=== PATIENT | male | born 1965 | race Caucasian/White ===

== ENCOUNTER 2017-01-06 20:13 | Inpatient (IN) | payer SELFPAY ==
[2017-01-06 20:29] VITALS: BP 117/73; PULSE 80; RESP 16; TEMP 97.9
--- NOTE | 2017-01-06 20:35 | PD ---
HPI Chief Complaint: Alcohol/Drug Intoxication Time Seen by Provider: 20:29 Travel History International Travel<30 days: No Contact w/Intl Traveler<30days: No Traveled to known affect area: No History of Present Illness HPI Patient comes in by EMS after having a reported witnessed fall at [facility]. Patient was reportedly outside of [facility] drinking alcohol when he was seen falling backwards hitting his head. Patient appears heavily intoxicated and a poor historian at this time thus limiting H&P. [facility] Past Medical History Medical History: Unable to Obtain Social History Alcohol Use: Yes Tobacco Use: Yes Allergies-Medications (Allergen,Severity, Reaction): Coded Allergies: Unable to Assess (Verified Allergy, Unknown, 01/06/17) Reported Meds & Prescriptions Reported Meds & Active Scripts Active Active Prescriptions or Reported Medications Unobtainable Review of Systems ROS Limitations: Intoxication Except as stated in HPI: all other systems reviewed are Neg Physical Exam Exam Limitations: Intoxication Narrative GENERAL: Well-developed, overly nourished, in no acute distress, and non-ill appearing. Alcohol noted on breath. SKIN: Focused skin assessment warm and dry. HEAD: Atraumatic. Normocephalic. EYES: Pupils equal and round. EOMI. No scleral icterus. No injection or drainage. ENT: No nasal bleeding or discharge. Mucous membranes pink and moist. NECK: Trachea midline. C-collar in place. CARDIOVASCULAR: Regular rate and rhythm. No murmur appreciated. RESPIRATORY: No accessory muscle use. No respiratory distress. Clear to auscultation. Breath sounds equal bilaterally. GASTROINTESTINAL: Abdomen soft, non-tender, nondistended, and no guarding. Hepatic and splenic margins not palpable. Normal bowel sounds 4. No pulsatile mass. MUSCULOSKELETAL: No obvious deformities. No clubbing. No cyanosis. No edema. Full range of motion. NEUROLOGICAL: Awake and alert. No obvious cranial nerve deficits. Motor grossly within normal limits. Slurred speech. Data Data Last Documented VS Vital Signs Date Time Temp Pulse Resp B/P (MAP) Pulse Ox O2 Delivery O2 Flow Rate FiO2 01/06/17 21:35 16 96 Room Air 01/06/17 20:29 97.9 80 117/73 (88) Orders Orders Ct Brain W/O Iv Contrast(Rout) (01/06/17 ) Ct Cerv Spine W/O Contrast (01/06/17 ) Basic Metabolic Panel (Bmp) (01/06/17 21:10) Complete Blood Count With Diff (01/06/17 21:10) Act Partial Throm Time (Ptt) (01/06/17 21:10) Iv Access Insert/Monitor (01/06/17 21:10) Ecg Monitoring (01/06/17 21:10) Oximetry (01/06/17 21:10) Sodium Chloride 0.9% Flush (Ns Flush) (01/06/17 21:15) Prothrombin Time / Inr (Pt) (01/06/17 21:10) Alcohol (Ethanol) (01/06/17 21:10) Admit To Inpatient (01/06/17 ) Code Status (01/06/17 21:40) Vital Signs (Adult) CHESTER.Q1H (01/06/17 21:40) Activity Bed Rest (01/06/17 21:40) Elevate Head Of Bed (01/06/17 21:40) Bedside Glucose [place]STER.BGM (01/06/17 21:40) Diet Npo (01/07/17 Breakfast) Sodium Chloride 0.9% Flush (Ns Flush) (01/06/17 21:45) Sodium Chloride 0.9% Flush (Ns Flush) (01/07/17 09:00) Acetaminophen (Tylenol) (01/06/17 21:45) Famotidine Inj (Pepcid Inj) (01/06/17 21:45) Albuterol-Ipratropium Neb (Duoneb Neb) (01/06/17 21:45) Complete Blood Count With Diff (01/07/17 04:00) Comprehensive Metabolic Panel (01/07/17 04:00) Magnesium (Mg) (01/07/17 04:00) Phosphorus (Po4) (01/07/17 04:00) Resp Oxygen Jesus C Titrat 1-4 L (01/06/17 ) Lining Feller / Telemetry CHESTER.Q8H (01/06/17 21:40) Scd Bilateral/Knee High CHESTER.BID (01/06/17 21:40) ^ Initiate Protocol (01/06/17 21:40) Instruction (01/06/17 21:40) Misc Nursing Information (01/06/17 21:45) Chlorhexidine 2% Cloth (Chlorhexidine 2% (01/07/17 04:00) Chlorhexidine 2% Cloth (Chlorhexidine 2% (01/06/17 21:45) Mrsa Pcr Surveillance (01/06/17 21:40) Docusate Sodium-Senna (Pita-Colace) (01/07/17 09:00) Magnesium Hydroxide Liq (Milk Of Magnesi (01/06/17 21:45) Sennosides (Senokot) (01/06/17 21:45) Bisacodyl Supp (Dulcolax Supp) (01/06/17 21:45) Lactulose Liq (Lactulose Liq) (01/06/17 21:45) Inpatient Certification (01/06/17 ) Consult Neurosurgery (01/06/17 ) Admit Order (Ed Use Only) (01/06/17 21:47) Labs Laboratory Tests Test 01/06/17 21:27 White Blood Count 12.8 TH/MM3 Red Blood Count 4.29 MIL/MM3 Hemoglobin 13.3 GM/DL Hematocrit 39.1 % Mean Corpuscular Volume 91.1 FL Mean Corpuscular Hemoglobin 31.1 PG Mean Corpuscular Hemoglobin Concent 34.1 % Red Cell Distribution Width 13.0 % Platelet Count 230 TH/MM3 Mean Platelet Volume 8.2 FL Neutrophils (%) (Auto) 69.6 % Lymphocytes (%) (Auto) 21.8 % Monocytes (%) (Auto) 4.4 % Eosinophils (%) (Auto) 3.6 % Basophils (%) (Auto) 0.6 % Neutrophils # (Auto) 8.9 TH/MM3 Lymphocytes # (Auto) 2.8 TH/MM3 Monocytes # (Auto) 0.6 TH/MM3 Eosinophils # (Auto) 0.5 TH/MM3 Basophils # (Auto) 0.1 TH/MM3 CBC Comment DIFF FINAL Differential Comment Prothrombin Time 10.0 SEC Prothromb Time International Ratio 0.9 RATIO Activated Partial Thromboplast Time 26.4 SEC Blood Urea Nitrogen 11 MG/DL Creatinine 0.82 MG/DL Random Glucose 90 MG/DL Calcium Level 7.8 MG/DL Sodium Level 133 MEQ/L Potassium Level 3.7 MEQ/L Chloride Level 100 MEQ/L Carbon Dioxide Level 22.9 MEQ/L Anion Gap 10 MEQ/L Estimat Glomerular Filtration Rate 81 ML/MIN Ethyl Alcohol Level 302 MG/DL MDM Medical Decision Making Medical Screen Exam Complete: Yes Emergency Medical Condition: Yes Interpretation(s) Last Impressions Head CT 01/06/17 0000 Signed Impressions: Service Date/Time: Friday, January 06, 2017 20:45 - CONCLUSION: Closed head injury with subarachnoid hemorrhage amount the frontal region bilaterally , right anterior temporal hematoma and smaller hemorrhages in the lateral right temporal lobe and lateral right parietal cortex. Boyd Lopez MD Cervical Spine CT 01/06/17 0000 Signed Impressions: Service Date/Time: Friday, January 06, 2017 20:46 - CONCLUSION: 1. No evidence of compression deformity or spondylolisthesis. 2. Multilevel discogenic degenerative changes with prominent disc osteophyte complex indenting on the thecal sac at C5-6 and possible left sided protrusion at C3-4 Boyd Lopez MD Differential Diagnosis Closed head injury, intracranial hemorrhage, alcohol intoxication, metabolic disturbance, fracture, strain Narrative Course Patient was seen and examined. Initial neurological studies were ordered. After reviewing CT head discussed patient with Dr. Valentin, who reviewed head CT then spoke with neurosurgery and insecticide expert. Labs were ordered. Diagnosis Primary Impression: Subarachnoid hemorrhage Additional Impressions: Alcohol intoxication Qualified Codes: F10.929 - Alcohol use, unspecified with intoxication, unspecified Intracranial hemorrhage Closed head injury Qualified Codes: S09.90XA - Unspecified injury of head, initial encounter Scripts Unable to Obtain Active Prescriptions or Reported Meds Dex Morrison Jan 06, 2017 20:35
[2017-01-06] MEDS ORDERED: SODIUM CHLORIDE 0.9% FLUSH 10 ML FLUSH IV FLUSH PRN ×2 (21:15→21:45)
--- NOTE | 2017-01-06 21:15 | RADRPT ---
EXAM DATE/TIME: 01/06/2017 20:45 [facility] COMPARISON: No previous studies available for comparison. INDICATIONS : Fell and hit posterior head. RADIATION DOSE: 56.35 CTDIvol (mGy) MEDICAL HISTORY : Non-responsive. SURGICAL HISTORY : Non-responsive. ENCOUNTER: Initial ACUITY: 1 day PAIN SCALE: Non-responsive LOCATION: cranial TECHNIQUE: Multiple contiguous axial images were obtained of the head. Using automated exposure control and adj ustment of the mA and/or kV according to patient size, radiation dose was kept as low as reasonably a chievable to obtain optimal diagnostic quality images. DICOM format image data is available electro nically for review and comparison. FINDINGS: Examination is abnormal demonstrating evidence of subarachnoid hemorrhage in the anterior interhemisp heric fissure and in the inferior medial temporal region bilaterally. There is also a right temporal hematoma which appears to be intra-axial measuring 1.9 cm. Cortical contusion with mixed hyper and hypodensity in the lateral right temporal cortex superior and anterior to the petrous ridge. 5 mm pa renchymal calcification in the cortex of the right mid parietal lobe. No evidence of intraventricula r blood. No evidence of midline shift the ventricles are normal in size. Posterior fossa structures are grossly intact. Wide windows for bony detail demonstrate the calvariu m to be intact. CONCLUSION: Closed head injury with subarachnoid hemorrhage amount the frontal region bilaterally, right anterior temporal hematoma and smaller hemorrhages in the lateral right temporal lobe and lateral right parie sushma cortex. Boyd Lopez MD on January 06, 2017 at 21:10 Board Certified Radiologist. This report was verified electronically.
--- NOTE | 2017-01-06 21:25 | RADRPT ---
EXAM DATE/TIME: 01/06/2017 20:46 [facility] COMPARISON: No previous studies available for comparison. INDICATIONS : Fell and hit head. RADIATION DOSE: 38.31 CTDIvol (mGy) MEDICAL HISTORY : Non-responsive. SURGICAL HISTORY : Non-responsive. ENCOUNTER: Initial ACUITY: 1 day PAIN SCALE: Non-responsive LOCATION: neck TECHNIQUE: Volumetric scanning of the cervical spine was performed. Multiplanar reconstructions in the sagittal, coronal and oblique axial planes were performed. Using automated exposure control and adjustment o f the mA and/or kV according to patient size, radiation dose was kept as low as reasonably achievable to obtain optimal diagnostic quality images. DICOM format image data is available electronically f or review and comparison. FINDINGS: There is straightening of the cervical lordosis with preservation of vertebral body height. No fract ure seen. Mild anterior and posterior osteophytes are present from C3 through C6. The posterior nneka ments are normal and without evidence of locked or perched facets. Atlantoaxial articulation is inta ct. Prevertebral soft tissues are normal the C2-C3: No fracture seen. The neural foramen are patent. C3-C4: No fracture seen. The neural foramen are patent. C4-C5: No fracture seen. Small collection of gas left-sided superior to the displaced suggesting focal disc protrusion or gas related to left uncovertebral joint. C5-C6: Central disc/osteophyte complex causes indentation on the thecal sac. No lateral extension. C6-C7: No fracture seen. The neural foramen are patent. C7-T1: No fracture seen. The neural foramen are patent. CONCLUSION: 1. No evidence of compression deformity or spondylolisthesis. 2. Multilevel discogenic degenerative changes with prominent disc osteophyte complex indenting on the thecal sac at C5-6 and possible left sided protrusion at C3-4 Boyd Lopez MD on January 06, 2017 at 21:14 Board Certified Radiologist. This report was verified electronically.
--- NOTE | 2017-01-06 21:33 | PD ---
Data Data Last Documented VS Vital Signs Date Time Temp Pulse Resp B/P (MAP) Pulse Ox O2 Delivery O2 Flow Rate FiO2 01/06/17 21:35 16 96 Room Air 01/06/17 20:29 97.9 80 117/73 (88) Orders Orders Ct Brain W/O Iv Contrast(Rout) (01/06/17 ) Ct Cerv Spine W/O Contrast (01/06/17 ) Basic Metabolic Panel (Bmp) (01/06/17 21:10) Complete Blood Count With Diff (01/06/17 21:10) Act Partial Throm Time (Ptt) (01/06/17 21:10) Iv Access Insert/Monitor (01/06/17 21:10) Ecg Monitoring (01/06/17 21:10) Oximetry (01/06/17 21:10) Sodium Chloride 0.9% Flush (Ns Flush) (01/06/17 21:15) Prothrombin Time / Inr (Pt) (01/06/17 21:10) Alcohol (Ethanol) (01/06/17 21:10) MDM Supervised Visit with NEMESIO: Yes Narrative Course I, Dr. Valentin, have reviewed the advance practice practitioner's documentation and am in agreement, met with the patient face to face, made the diagnosis, and the medical decision making was done by me. See his note for further details. This is a middle-aged male who is apparently an alcoholic who while drinking alcohol this evening had a witnessed fall backwards. He was brought in by him once on longboard with cervical immobilization. Upon arrival the patient appears intoxicated. He is mumbling while speaking. He does not make sense. He is arousable to painful stimuli. His pupils are equal round and reactive. There are no scalp lacerations. He moves all of his extremities and which also painful stimuli. His airways patent and protected. CT of the head was promptly performed and shows closed head injury with subarachnoid hemorrhage in the frontal region bilaterally, right anterior temporal hematoma and small hemorrhages in the lateral right temporal lobe and lateral right parietal cortex. CT of the cervical spine shows degenerative changes without compression deformity or spondylolisthesis. After CT of the head was reported, labs were added and calls placed to both neurosurgeon on-call as well as tobacco stemmer for admission. 9:30 PM: Case discussed with on-call neurosurgeon Dr. Beck. He agrees with admitting to the tobacco stemmer service and will see the patient in consultation. 9:40 PM: Case discussed with tobacco stemmer Dr. Levy who will admit the patient to his service to the [facility]. Critical Care Narrative Aggregate critical care time was 35 minutes. Time to perform other separately billable procedures was not included in the critical care time. My time did not include minutes spent treating any other patients simultaneously or on activities that did not directly contribute to the patient's treatment. The services I provided to this patient were to treat and/or prevent clinically significant deterioration that could result in: , permanent disability, worsening clinical condition I provided critical care services requiring my management, as noted below: Chart data review, documentation time, medication orders and management, vital sign assessments/reviewing monitor data, ordering and reviewing lab tests, ordering and interpreting/reviewing x-rays and diagnostic studies, care of the patient and discussion of the patient with the admitting physicians. Diagnosis Primary Impression: Closed head injury Qualified Codes: S09.90XA - Unspecified injury of head, initial encounter Additional Impressions: Subarachnoid hemorrhage Intracranial hemorrhage Alcohol intoxication Qualified Codes: F10.929 - Alcohol use, unspecified with intoxication, unspecified Admitting Information Admitting Physician Requests: Admit Scripts Unable to Obtain Active Prescriptions or Reported Meds Royce Valentin MD Jan 06, 2017 21:33
[2017-01-06 21:35] VITALS: RESP 16; O2SAT 96
[2017-01-06] MEDS ORDERED: BISACODYL 10 MG SUPP RECTAL PRN (21:45)
[2017-01-06] MEDS ORDERED: MISCELLANEOUS NURSING INFORMATION XX SCH (21:45)
[2017-01-06] MEDS ORDERED: SENNOSIDES 8.6 MG TAB PO PRN (21:45)
[2017-01-06] MEDS: FAMOTIDINE 20 MG/2 ML VIAL IV PUSH SCH (21:45)
[2017-01-06] MEDS ORDERED: MAGNESIUM HYDROXIDE SUSP 30 ML CUP PO PRN (21:45)
[2017-01-06] MEDS ORDERED: CHLORHEXIDINE GLUCONATE 2 % 1 PACK (2 CLOTHS) TOP PRN (21:45)
[2017-01-06] MEDS ORDERED: ACETAMINOPHEN 325 MG TAB PO PRN ×2 (21:45→22:45)
[2017-01-06] MEDS ORDERED: RESP: ALBUTEROL 2.5 MG/IPRATROPIUM 0.5 MG NEB (PRN) INH (21:45)
[2017-01-06] MEDS ORDERED: LACTULOSE SYRUP 20 GM/30 ML CUP PO PRN (21:45)
[2017-01-06 21:50] VITALS: BP 116/69; PULSE 79; RESP 16; O2SAT 96
[2017-01-06 21:56] LABS: AUTOMATED NEUTROPHIL # 8.9 TH/MM3 (1.8-7.7); BASOPHIL # 0.1 TH/MM3 (0-0.2); BASOPHIL % 0.6 % (0.0-2.0); EOSINOPHIL # 0.5 TH/MM3 (0-0.4); EOSINOPHIL % 3.6 % (0.0-4.0); HEMATOCRIT 39.1 % (39.0-51.0); HEMO FLAGS DIFF FINAL; LYMPH % 21.8 % (9.0-44.0); LYMPHOCYTE # 2.8 TH/MM3 (1.0-4.8); MEAN CELL VOLUME 91.1 FL (80.0-100.0); MEAN CORPUSCULAR HEMOGLOBIN 31.1 PG (27.0-34.0); MEAN CORPUSCULAR HGB CONC 34.1 % (32.0-36.0); MONO % 4.4 % (0.0-8.0); NEUT % 69.6 % (16.0-70.0); PLATELET COUNT 230 TH/MM3 (150-450); RED BLOOD COUNT 4.29 MIL/MM3 (4.50-5.90); WHITE BLOOD COUNT 12.8 TH/MM3 (4.0-11.0)
[2017-01-06] MEDS: SODIUM CHLOR 0.9% 1000 ML INJ 1,000 ML IV SCH (22:00)
[2017-01-06 22:07] LABS: APTT (PATIENT) 26.4 SEC (24.3-30.1); INTERNATIONAL NORMALIZED RATIO 0.9 RATIO
[2017-01-06] MEDS ORDERED: levETIRAcetam INJ 500 MG in SODIUM CHLORIDE 0.9% INJ 100 ML IV STA (22:13)
--- NOTE | 2017-01-06 22:13 | HHI.HP ---
HPI Service Critical Care Medicine Primary Care Physician Unknown Admission Diagnosis subarachnoid hemorrhage, closed head injury Diagnosis: Travel History International Travel<30 Days: No Contact w/Intl Traveler <30 Da: No Traveled to Known Affected Are: No History of Present Illness HPI Middle-aged male brought in by EMS after witnessed fall at [facility]. Patient was reportedly drinking alcohol when he was seen falling backwards hitting his head on the pavement. He appeared to be intoxicated heavily and on arrival in the ER underwent imaging studies including a head CT which revealed subarachnoid hemorrhage. Neurosurgery was contacted by ER physician and requested admission by critical care medicine service with neurosurgery consult. Patient was accepted for admission by critical care medicine and I evaluated the patient while he was in the ER. At that time he was stuporous/ encephalopathic arousing to painful stimuli. His labs were pending at the time of my evaluation. History was obtained by reviewing records and discussion with Dr. Valentin. History [facility] Past Medical History Medical History: Unable to Obtain Social History Alcohol Use: Yes Tobacco Use: Yes Allergies-Medications Allergies-Medications Reported Meds & Prescriptions Reported Meds & Active Scripts Active Active Prescriptions or Reported Medications Unobtainable ROS Review of Systems ROS Limitations: Intoxication Except as stated in HPI: all other systems reviewed are Neg Past Family Social History Allergies: Coded Allergies: Unable to Assess (Verified Allergy, Unknown, 01/06/17) Physical Exam Vital Signs Vital Signs Date Time Temp Pulse Resp B/P (MAP) Pulse Ox O2 Delivery O2 Flow Rate FiO2 01/06/17 21:50 79 16 116/69 (85) 96 Nasal Cannula 2.00 01/06/17 21:35 16 96 Room Air 01/06/17 20:33 16 96 01/06/17 20:29 97.9 80 16 117/73 (88) Physical Exam Exam Limitations: Intoxication Narrative GENERAL: Well-developed, overly nourished, in no acute distress, and non-ill appearing. Alcohol noted on breath. SKIN: Focused skin assessment warm and dry. HEAD: Atraumatic. Normocephalic. EYES: Pupils equal and round. EOMI. No scleral icterus. No injection or drainage. ENT: No nasal bleeding or discharge. Mucous membranes pink and moist. NECK: Trachea midline. CARDIOVASCULAR: Regular rate and rhythm. No murmur appreciated. RESPIRATORY: No accessory muscle use. No respiratory distress. Clear to auscultation. Breath sounds equal bilaterally. GASTROINTESTINAL: Abdomen soft, non-tender, nondistended, and no guarding. Hepatic and splenic margins not palpable. Normal bowel sounds 4. No pulsatile mass. MUSCULOSKELETAL: No obvious deformities. No clubbing. No cyanosis. No edema. Full range of motion. NEUROLOGICAL: Encephalopathic/stuporose, arouses with painful stimuli, No obvious cranial nerve deficits. Motor grossly within normal limits. Slurred speech. Laboratory Laboratory Tests Test 01/06/17 21:27 White Blood Count 12.8 Red Blood Count 4.29 Hemoglobin 13.3 Hematocrit 39.1 Mean Corpuscular Volume 91.1 Mean Corpuscular Hemoglobin 31.1 Mean Corpuscular Hemoglobin Concent 34.1 Red Cell Distribution Width 13.0 Platelet Count 230 Mean Platelet Volume 8.2 Neutrophils (%) (Auto) 69.6 Lymphocytes (%) (Auto) 21.8 Monocytes (%) (Auto) 4.4 Eosinophils (%) (Auto) 3.6 Basophils (%) (Auto) 0.6 Neutrophils # (Auto) 8.9 Lymphocytes # (Auto) 2.8 Monocytes # (Auto) 0.6 Eosinophils # (Auto) 0.5 Basophils # (Auto) 0.1 CBC Comment DIFF FINAL Differential Comment Result Diagram: 01/06/172126 Imaging Last Impressions Head CT 01/06/17 0000 Signed Impressions: Service Date/Time: Friday, January 06, 2017 20:45 - CONCLUSION: Closed head injury with subarachnoid hemorrhage amount the frontal region bilaterally , right anterior temporal hematoma and smaller hemorrhages in the lateral right temporal lobe and lateral right parietal cortex. Boyd Lopez MD Cervical Spine CT 01/06/17 0000 Signed Impressions: Service Date/Time: Friday, January 06, 2017 20:46 - CONCLUSION: 1. No evidence of compression deformity or spondylolisthesis. 2. Multilevel discogenic degenerative changes with prominent disc osteophyte complex indenting on the thecal sac at C5-6 and possible left sided protrusion at C3-4 MD Ketan Benitez VTE Risk Assessment Ketan VTE Risk Assessment: Mod/High Risk (score >= 2) VTE Pharm Contraindication: Intracranial lesions Caprini Risk Assessment Model Point Value = 1 Point Value = 2 Point Value = 3 Point Value = 5 Age 41-60 Minor surgery BMI > 25 kg/m2 Swollen legs Varicose veins or History of unexplained or recurrent spontaneous Oral contraceptives or hormone replacement Sepsis (< 1 month) Serious lung disease, including pneumonia (< 1 month) Abnormal pulmonary function Acute myocardial infarction Congestive heart failure (< 1 month) History of inflammatory bowel disease Medical patient at bed rest Age 61-74 Arthroscopic surgery Major open surgery (> 45 min) Laparoscopic surgery (> 45 min) Malignancy Confined to bed (> 72 hours) Immobilizing plaster cast Central venous access Age >= 75 History of VTE Family history of VTE Factor V Leiden Prothrombin [id number] Lupus anticoagulant Anticardiolipin antibodies Elevated serum homocysteine Heparin-induced thrombocytopenia Other congenital or acquired thrombophilia Stroke (< 1 month) Elective arthroplasty Hip, pelvis, or leg fracture Acute spinal cord injury (< 1 month) Prophylaxis Regimen Total Risk Factor Score Risk Level Prophylaxis Regimen 0-1 Low Early ambulation 2 Moderate Order ONE of the following: *Sequential Compression Device (SCD) *Heparin 5000 units SQ BID 3-4 Higher Order ONE of the following medications: *Heparin 5000 units SQ TID *Enoxaparin/Lovenox 40 mg SQ daily (WT < 150 kg, CrCl > 30 mL/min) *Enoxaparin/Lovenox 30 mg SQ daily (WT < 150 kg, CrCl > 10-29 mL/min) *Enoxaparin/Lovenox 30 mg SQ BID (WT < 150 kg, CrCl > 30 mL/min) AND/OR *Sequential Compression Device (SCD) 5 or more Highest Order ONE of the following medications: *Heparin 5000 units SQ TID (Preferred with Epidurals) *Enoxaparin/Lovenox 40 mg SQ daily (WT < 150 kg, CrCl > 30 mL/min) *Enoxaparin/Lovenox 30 mg SQ daily (WT < 150 kg, CrCl > 10-29 mL/min) *Enoxaparin/Lovenox 30 mg SQ BID (WT < 150 kg, CrCl > 30 mL/min) AND *Sequential Compression Device (SCD) Assessment and Plan Assessment and Plan Middle aged male with: Encephalopathy TBI with traumatic subarachnoid hemorrhage, right temporal hematoma Alcohol intoxication Plan: Neuro: Follow neuro status. Neurosurgery consult requested by ER - Dr. Ebony carrington. Repeat head CT per neurosurgery. Await EtOH level/ urine drug screen. Add Keppra 500 mg IV every 12 hourly for seizure prophylaxis. Cardiovascular: IV hydration, watch for hypotension Pulmonary: Supplemental O2 as needed. Protecting airway currently. If neurologic status worsens may require endotracheal intubation for airway protection. GI/liver: Nothing by mouth for now Renal/: IV hydration, strict intake output, monitor and replete electro lites , follow BUN/creatinine. ID: No antibiotics at this time. Heme: Follow CBC and coags Endocrine: SSI for glycemic control if needed Prophylaxis: Pepcid/SCDs. No heparin or Lovenox in view of subarachnoid hemorrhage. Further recommendations per neurosurgery. Time spent on critical care excluding procedures 35 minutes Jethro Levy MD Jan 06, 2017 22:13
[2017-01-06 22:18] VITALS: BP 114/68; PULSE 73; RESP 16; O2SAT 100
[2017-01-06 22:28] LABS: BICARBONATE 22.9 MEQ/L (21.0-32.0); POTASSIUM 3.7 MEQ/L (3.5-5.1)
--- NOTE | 2017-01-06 22:42 | RADRPT ---
EXAM DATE/TIME: 01/06/2017 22:06 [facility] COMPARISON: No previous studies available for comparison. INDICATIONS : Evaluate lung status. Infiltrate per order. MEDICAL HISTORY : Unobtainable. SURGICAL HISTORY : Unobtainable. ENCOUNTER: Initial ACUITY: 1 day PAIN SCORE: Non-responsive. LOCATION: Bilateral chest FINDINGS: A single view of the chest demonstrates the lungs to be symmetrically aerated without evidence of mas s, infiltrate or effusion. The cardiomediastinal contours are unremarkable. Healed posterolateral r ight rib fractures.. CONCLUSION: The lungs are clear. No infiltrates seen. Boyd Lopez MD on January 06, 2017 at 22:37 Board Certified Radiologist. This report was verified electronically.
[2017-01-06] MEDS ORDERED: ONDANSETRON HCL 4 MG/2 ML VIAL IV PUSH PRN (22:45)
[2017-01-06] MEDS ORDERED: LORazepam 2 MG/ML VIAL IV PUSH PRN (22:45)
[2017-01-06] MEDS ORDERED: PROMETHAZINE INJ 25 MG/ML VIAL IM PRN (22:45)
[2017-01-06] MEDS ORDERED: cloNIDine HCL 0.1 MG TAB PO PRN (22:45)
[2017-01-06] MEDS ORDERED: LABETALOL HCL 100 MG/20 ML VIAL IV PUSH PRN (22:45)
--- NOTE | 2017-01-06 22:47 | PD.CONS ---
History of Present Illness Service Neurosurgery Consult Requested By Primary Care Physician Unknown Diagnoses: History of Present Illness Middle-aged gentleman with a history of alcohol abuse and apparently was intoxicated and fell it is had with questionable loss of consciousness. He was brought to [facility] emergency room and trauma workup included a CT of the head which reveals 2.6 cm right temporal lobe hemorrhage along with scattered contusions long with traumatic subarachnoid hemorrhage involving the interhemispheric fissure and the bilateral sylvian fissures without mass effect or midline shift. CT cervical spine reveals some degenerative changes that any fractures. He smells of alcohol is heavily intoxicated and therefore it is difficult to obtain any history. He will open his eyes slightly to the stimulation and move all extremities and verbalizes with slurred speech. Review of Systems ROS Limitations: Intoxication Intoxicated Past Family Social History Allergies: Coded Allergies: No Known Allergies (Unverified , 01/07/17) Past Medical History Unknown Past Surgical History Unknown Reported Medications Unknown Family History Not obtainable Social History Family does have a history of alcohol abuse and is currently intoxicated. No friends or family members available Physical Exam Vital Signs Vital Signs Date Time Temp Pulse Resp B/P (MAP) Pulse Ox O2 Delivery O2 Flow Rate FiO2 01/06/17 22:18 73 16 114/68 (83) 100 Nasal Cannula 2.00 01/06/17 21:50 79 16 116/69 (85) 96 Nasal Cannula 2.00 01/06/17 21:35 16 96 Room Air 01/06/17 20:33 16 96 01/06/17 20:29 97.9 80 16 117/73 (88) Physical Exam GENERAL: This is an intoxicated well-nourished, well-developed patient, in no apparent distress. SKIN: No rashes, ecchymoses or lesions. Cool and dry. HEAD: Atraumatic. Normocephalic. No temporal or scalp tenderness. EYES: Pupils equal round and reactive. Extraocular motions intact. No scleral icterus. No injection or drainage. ENT: Poor dentition. Nose without bleeding, purulent drainage or septal hematoma. Throat without erythema, tonsillar hypertrophy or exudate. Uvula midline. Airway patent. NECK: Trachea midline. No JVD or lymphadenopathy. Supple, nontender, no meningeal signs. CARDIOVASCULAR: Regular rate and rhythm without murmurs, gallops, or rubs. RESPIRATORY: Clear to auscultation. Breath sounds equal bilaterally. No wheezes , rales, or rhonchi. GASTROINTESTINAL: Abdomen soft, non-tender, nondistended. No hepato-splenomegaly , or palpable masses. No guarding. MUSCULOSKELETAL: Extremities without clubbing, cyanosis, or edema. No joint tenderness, effusion, or edema noted. No calf tenderness. Negative Homans sign bilaterally. NEUROLOGICAL: Lethargic. Cranial nerves II through XII intact. Motor and sensory grossly within normal limits. Five out of 5 muscle strength in all muscle groups. Slurred speech. Laboratory Laboratory Tests Test 01/06/17 21:27 01/06/17 22:36 White Blood Count 12.8 Red Blood Count 4.29 Hemoglobin 13.3 Hematocrit 39.1 Mean Corpuscular Volume 91.1 Mean Corpuscular Hemoglobin 31.1 Mean Corpuscular Hemoglobin Concent 34.1 Red Cell Distribution Width 13.0 Platelet Count 230 Mean Platelet Volume 8.2 Neutrophils (%) (Auto) 69.6 Lymphocytes (%) (Auto) 21.8 Monocytes (%) (Auto) 4.4 Eosinophils (%) (Auto) 3.6 Basophils (%) (Auto) 0.6 Neutrophils # (Auto) 8.9 Lymphocytes # (Auto) 2.8 Monocytes # (Auto) 0.6 Eosinophils # (Auto) 0.5 Basophils # (Auto) 0.1 CBC Comment DIFF FINAL Differential Comment Prothrombin Time 10.0 Prothromb Time International Ratio 0.9 Activated Partial Thromboplast Time 26.4 Blood Urea Nitrogen 11 Creatinine 0.82 Random Glucose 90 Calcium Level 7.8 Sodium Level 133 Potassium Level 3.7 Chloride Level 100 Carbon Dioxide Level 22.9 Anion Gap 10 Estimat Glomerular Filtration Rate 81 Ethyl Alcohol Level 302 Result Diagram: 01/06/17212601/06/172126 Imaging Last Impressions Head CT 01/06/17 0000 Signed Impressions: Service Date/Time: Friday, January 06, 2017 20:45 - CONCLUSION: Closed head injury with subarachnoid hemorrhage amount the frontal region bilaterally , right anterior temporal hematoma and smaller hemorrhages in the lateral right temporal lobe and lateral right parietal cortex. Boyd Lopez MD Cervical Spine CT 01/06/17 0000 Signed Impressions: Service Date/Time: Friday, January 06, 2017 20:46 - CONCLUSION: 1. No evidence of compression deformity or spondylolisthesis. 2. Multilevel discogenic degenerative changes with prominent disc osteophyte complex indenting on the thecal sac at C5-6 and possible left sided protrusion at C3-4 Boyd Lopez MD Assessment and Plan Assessment and Plan 1. 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 2. Alcohol intoxication. Patient will be admitted to the intensive care unit for close neurologic and hemodynamic monitoring. His head of bed will kept elevated 30. Alcohol withdrawal precautions will be undertaken and he is at a higher risk for DTs. Mechanical DVT prophylaxis along with gastrointestinal stress ulcer prophylaxis. Follow-up CT scan of the head in the morning. Boni Beck MD Jan 06, 2017 22:47
[2017-01-07] VITALS (12 sets, daily range): BP systolic 97–140; BP diastolic 57–81; PULSE 58–97; RESP 14–19; TEMP 97.3–98.6; O2SAT 95–100
[2017-01-07] MEDS: THIAMINE INJ 100 MG in SODIUM CHLORIDE 0.9% INJ 100 ML IV SCH ×2 (00:53→22:08)
[2017-01-07] MEDS: MULTIVITAMIN INJ 10 ML, FOLIC ACID INJ 1 MG in SODIUM CHLORID 0.9% 500 ML INJ 500 ML IV SCH ×2 (01:55→22:08)
[2017-01-07] MEDS: CHLORHEXIDINE GLUCONATE 2 % 1 PACK (2 CLOTHS) TOP SCH ×2 (03:04→22:13)
--- NOTE | 2017-01-07 05:14 | RADRPT ---
EXAM DATE/TIME: 01/07/2017 04:08 [place] COMPARISON: CT BRAIN W/O CONTRAST, January 06, 2017, 20:45. INDICATIONS : Follow up subarachnoid hemorrhage after fall. RADIATION DOSE: 56.35 CTDIvol (mGy) MEDICAL HISTORY : Non-responsive. SURGICAL HISTORY : Non-responsive. ENCOUNTER: Subsequent ACUITY: 1 day PAIN SCALE: Non-responsive LOCATION: cranial TECHNIQUE: Multiple contiguous axial images were obtained of the head. Using automated exposure control and adj ustment of the mA and/or kV according to patient size, radiation dose was kept as low as reasonably a chievable to obtain optimal diagnostic quality images. DICOM format image data is available electro nically for review and comparison. FINDINGS: Subarachnoid blood is not significantly changed. Patchy parenchymal hemorrhages of the right frontal, parietal and temporal lobes again noted and slightly larger. The largest right frontal hemorrhage is 2.6 cm anteriorly read there is a new or at least more conspicuous area posteriorly of the right tem poral lobe measuring 11 mm on series 2 image 12. Mild parenchymal hemorrhage is now evident anteriorl y of the left frontal lobe. There is no measurable midline shift. No mass lesion. No evidence of an acute ischemic event. CONCLUSION: 1. Patchy parenchymal hemorrhage as above, slightly increased in size were more conspicuous on the ri ght but there remains no midline shift. 2. Basilar predominant subarachnoid blood is not significantly changed. Amaury Gramajo MD on January 07, 2017 at 5:09 Board Certified Radiologist. This report was verified electronically.
[2017-01-07 05:37] LABS: AUTOMATED NEUTROPHIL # 5.6 TH/MM3 (1.8-7.7); BASOPHIL # 0.1 TH/MM3 (0-0.2); BASOPHIL % 0.6 % (0.0-2.0); EOSINOPHIL # 0.5 TH/MM3 (0-0.4); HEMATOCRIT 36.1 % (39.0-51.0); HEMO FLAGS DIFF FINAL; LYMPHOCYTE # 2.9 TH/MM3 (1.0-4.8); MEAN CELL VOLUME 92.1 FL (80.0-100.0); MEAN CORPUSCULAR HEMOGLOBIN 31.7 PG (27.0-34.0); MEAN CORPUSCULAR HGB CONC 34.4 % (32.0-36.0); NEUT % 59.4 % (16.0-70.0); PLATELET COUNT 199 TH/MM3 (150-450); RED BLOOD COUNT 3.91 MIL/MM3 (4.50-5.90); RED CELL DISTRIBUTION WIDTH 13.6 % (11.6-17.2); WHITE BLOOD COUNT 9.4 TH/MM3 (4.0-11.0)
[2017-01-07 06:02] LABS: BICARBONATE 21.1 MEQ/L (21.0-32.0); POTASSIUM 3.3 MEQ/L (3.5-5.1); TOTAL BILIRUBIN ADULT 0.1 MG/DL (0.2-1.0)
[2017-01-07] MEDS: SODIUM CHLORIDE 0.9% FLUSH 10 ML FLUSH IV FLUSH SCH ×2 (09:00→21:46)
[2017-01-07] MEDS: DOCUSATE SODIUM 50 MG/SENNA 8.6 MG TAB PO SCH ×3 (09:00→21:00)
[2017-01-07] MEDS: BACITRACIN TOP OINT 15 GM TUBE TOP SCH ×2 (09:00→21:00)
[2017-01-07] MEDS: levETIRAcetam INJ 500 MG in SODIUM CHLORIDE 0.9% INJ 100 ML IV SCH ×2 (09:12→21:46)
[2017-01-07] MEDS: FAMOTIDINE 20 MG/2 ML VIAL IV PUSH SCH ×2 (09:12→21:46)
[2017-01-07] MEDS: SODIUM CHLOR 0.9% 1000 ML INJ 1,000 ML IV SCH ×3 (09:55→19:45)
[2017-01-07] MEDS ORDERED: POTASSIUM CHLORIDE 25 MEQ EFFERVESCENT TAB PO PRN (10:45)
[2017-01-07] MEDS ORDERED: POTASSIUM CHLOR 40 MEQ PREMIX 100 ML IV PRN ×2 (10:45)
[2017-01-07] MEDS ORDERED: POTASSIUM PHOSPHATE INJ 30 MMOL in SODIUM CHLOR 0.9% 250 ML INJ 250 ML IV PRN (10:45)
[2017-01-07] MEDS ORDERED: MAGNESIUM OXIDE 400 MG TAB PO PRN (10:45)
[2017-01-07] MEDS ORDERED: POTASSIUM PHOSPHATE MONOBASIC 500 MG TAB PO/TUBE PRN (10:45)
[2017-01-07] MEDS ORDERED: SODIUM PHOSPHATE INJ 30 MMOL in SODIUM CHLOR 0.9% 250 ML INJ 240 ML IV PRN (10:45)
[2017-01-07] MEDS ORDERED: MAGNESIUM SULFATE INJ 2 GM in SODIUM CHLORIDE 0.9% INJ 96 ML IV PRN (10:45)
[2017-01-07] MEDS ORDERED: POTASSIUM CHLOR 20 MEQ PREMIX 100 ML IV PRN ×2 (10:45)
[2017-01-07] MEDS ORDERED: MAGNESIUM SULFATE INJ 4 GM in SODIUM CHLORIDE 0.9% INJ 92 ML IV PRN (10:45)
--- NOTE | 2017-01-07 10:58 | HHI.CCPN ---
Subjective Remarks/Hospital Course Middle-aged male brought in by EMS after witnessed fall at [facility]. Patient was reportedly drinking alcohol when he was seen falling backwards hitting his head on the pavement. He appeared to be intoxicated heavily and on arrival in the ER underwent imaging studies including a head CT which revealed subarachnoid hemorrhage. Neurosurgery was contacted by ER physician and requested admission by critical care medicine service with neurosurgery consult. Patient was accepted for admission by critical care medicine and I evaluated the patient while he was in the ER. At that time he was stuporous/ encephalopathic arousing to painful stimuli. His labs were pending at the time of my evaluation. History was obtained by reviewing records and discussion with Dr. Valentin. 01/07: Lying in bed complaints of headache otherwise awake alert. CT of the head shows stable subarachnoid hemorrhage but more prominent intraparenchymal hemorrhage on the right frontoparietal and temporal regions largest measuring frontal 2.6 cm. Na 133. I have increased NS to 150 ml per hour Objective Vital Signs Date Time Temp Pulse Resp B/P (MAP) Pulse Ox O2 Delivery O2 Flow Rate FiO2 01/07/17 10:00 68 01/07/17 08:00 98.4 14 102/57 (72) 99 01/07/17 07:00 Nasal Cannula 2.00 Intake and Output 01/07/17 01/07/17 01/08/17 08:00 16:00 00:00 Intake Total 1030 ml 607 ml Output Total 0 ml Balance 1030 ml 607 ml Result Diagram: 01/07/17 0435 01/07/17 0435 Imaging Last Impressions Head CT 01/06/17 0000 Signed Impressions: Service Date/Time: Friday, January 06, 2017 20:45 - CONCLUSION: Closed head injury with subarachnoid hemorrhage amount the frontal region bilaterally , right anterior temporal hematoma and smaller hemorrhages in the lateral right temporal lobe and lateral right parietal cortex. Boyd Lopez MD Cervical Spine CT 01/06/17 0000 Signed Impressions: Service Date/Time: Friday, January 06, 2017 20:46 - CONCLUSION: 1. No evidence of compression deformity or spondylolisthesis. 2. Multilevel discogenic degenerative changes with prominent disc osteophyte complex indenting on the thecal sac at C5-6 and possible left sided protrusion at C3-4 Boyd Lopez MD Objective Remarks GENERAL: Well-developed, overly nourished, in no acute distress, and non-ill appearing. Alcohol noted on breath.C/o head ache SKIN: Focused skin assessment warm and dry. HEAD: Atraumatic. Normocephalic. EYES: Pupils equal and round. EOMI. No scleral icterus. No injection or drainage. ENT: No nasal bleeding or discharge. Mucous membranes pink and moist. NECK: Trachea midline. CARDIOVASCULAR: Regular rate and rhythm. No murmur appreciated. RESPIRATORY: No accessory muscle use. No respiratory distress. Clear to auscultation. Breath sounds equal bilaterally. GASTROINTESTINAL: Abdomen soft, non-tender, nondistended, and no guarding. Hepatic and splenic margins not palpable. Normal bowel sounds 4. No pulsatile mass. MUSCULOSKELETAL: No obvious deformities. No clubbing. No cyanosis. No edema. Full range of motion. NEUROLOGICAL: Awake alert complaints of headache. No obvious cranial nerve deficits. Motor grossly within normal limits. Slightly slurred speech. A/P Assessment and Plan Middle aged male with: Encephalopathy TBI with traumatic subarachnoid hemorrhage, right frontal temporal parietal IPH Alcohol intoxication Plan: Neuro: Follow neuro status. Neurosurgery - Dr. Beck aware. Repeat head CT stable subarachnoid hemorrhage, more prominent right-sided intraparenchymal hemorrhages. EtOH 302. Add Keppra 500 mg IV every 12 hourly for seizure prophylaxis. CIWA protocol. Supplement Thiamine. Keep Na >140 Cardiovascular: IV hydration, watch for hypotension. Increase NS to 150 ml per hour Pulmonary: Supplemental O2 as needed. Protecting airway currently. If neurologic status worsens may require endotracheal intubation for airway protection. GI/liver: Nothing by mouth. Start clear liquid diet, advance as tolerated Renal/: IV hydration, strict intake output, monitor and replete electro lites , follow BUN/creatinine. ID: No antibiotics at this time. Heme: Follow CBC and coags Endocrine: SSI for glycemic control if needed Prophylaxis: Pepcid/SCDs. No heparin or Lovenox in view of subarachnoid hemorrhage. Further recommendations per neurosurgery. Level 3 Continue ICU care for and frequent neuro checks due to slight expansion in the right intraparenchymal hemorrhage Jeremiah Rebolledo MD Jan 07, 2017 10:58
--- NOTE | 2017-01-07 11:10 | HHI.NSPN ---
(Sara Antonio) Note Status Status: Progress Note (Sara Antonio) Interval History Interval History Middle-aged gentleman with a history of alcohol abuse and apparently was intoxicated and fell it is had with questionable loss of consciousness. He was brought to [facility] emergency room and trauma workup included a CT of the head which reveals 2.6 cm right temporal lobe hemorrhage along with scattered contusions long with traumatic subarachnoid hemorrhage involving the interhemispheric fissure and the bilateral sylvian fissures without mass effect or midline shift. CT cervical spine reveals some degenerative changes that any fractures. He smells of alcohol is heavily intoxicated and therefore it is difficult to obtain any history. He will open his eyes slightly to the stimulation and move all extremities and verbalizes with slurred speech. 01/07: sleeping but arousable. f/u CT Head this am completed. moves all four extremities. (Sara Antonio) Labs, Micro, & Vital Signs Results Date Time Temp Pulse Resp B/P (MAP) Pulse Ox O2 Delivery O2 Flow Rate FiO2 01/07/17 10:00 68 01/07/17 08:00 98.4 70 14 102/57 (72) 99 01/07/17 08:00 70 01/07/17 07:00 100 Nasal Cannula 2.00 01/07/17 06:00 68 01/07/17 04:00 98.5 72 14 99/59 (72) 100 01/07/17 04:00 72 01/07/17 02:00 77 01/07/17 00:00 97.3 77 16 97/58 (71) 98 01/07/17 00:00 77 01/06/17 22:18 73 16 114/68 (83) 100 Nasal Cannula 2.00 01/06/17 21:50 79 16 116/69 (85) 96 Nasal Cannula 2.00 01/06/17 21:35 16 96 Room Air 01/06/17 20:33 16 96 01/06/17 20:29 97.9 80 16 117/73 (88) 01/08/17 07:00 Intake Total 607 ml Balance 607 ml Constitutional Vital Signs Date Time Temp Pulse Resp B/P (MAP) Pulse Ox O2 Delivery O2 Flow Rate FiO2 01/07/17 10:00 68 01/07/17 08:00 98.4 70 14 102/57 (72) 99 01/07/17 08:00 70 01/07/17 07:00 100 Nasal Cannula 2.00 01/07/17 06:00 68 01/07/17 04:00 98.5 72 14 99/59 (72) 100 01/07/17 04:00 72 01/07/17 02:00 77 01/07/17 00:00 97.3 77 16 97/58 (71) 98 01/07/17 00:00 77 01/06/17 22:18 73 16 114/68 (83) 100 Nasal Cannula 2.00 01/06/17 21:50 79 16 116/69 (85) 96 Nasal Cannula 2.00 01/06/17 21:35 16 96 Room Air 01/06/17 20:33 16 96 01/06/17 20:29 97.9 80 16 117/73 (88) 01/08/17 07:00 Intake Total 607 ml Balance 607 ml (Sara Antonio) Physical Exam Mr. Capps is sleeping, mumbles, follows only few simple command and keeps his eyes closed. Cranial nerve examination: pupils equal. Facial motor symmetric at rest. Motor: moving all four extremities symmetrically to command. Bilateral plantar flexion response. Cerebellar examination: cannot asses due to clinical condition. (Sara Antonio) Mr. Capps is sleeping, mumbles, follows only few simple command and keeps his eyes closed. Cranial nerve examination: pupils equal. Facial motor symmetric at rest. Motor: moving all four extremities symmetrically to command. Bilateral plantar flexion response. Cerebellar examination: cannot asses due to clinical condition. (Michael Pierre MD) Medications Current Medications Current Medications Medications (Trade) Dose Ordered Sig/Jose Route PRN Reason Start Time Stop Time Status Last Admin Dose Admin Sodium Chloride (NS Flush) 2 ml UNSCH PRN IV FLUSH FLUSH AFTER USING IV ACCESS 01/06/17 21:45 Sodium Chloride (NS Flush) 2 ml BID IV FLUSH 01/07/17 09:00 01/07/17 09:00 Acetaminophen (Tylenol) 650 mg Q6H PRN PO PAIN 1-10 AND/OR FEVER >101F 01/06/17 21:45 Famotidine (Pepcid Inj) 20 mg Q12HR IV PUSH 01/06/17 21:45 01/07/17 09:12 Albuterol/ Ipratropium (Duoneb Neb) 1 ampule Q2HR NEB PRN INH WHEEZING 01/06/17 21:45 Miscellaneous Information 1 Q361D XX 01/06/17 21:45 01/06/17 23:34 Chlorhexidine Gluconate (Chlorhexidine 2% Cloth) 3 pack Taper DAILY@04 TOP 01/07/17 04:00 01/03/18 03:59 Chlorhexidine Gluconate (Chlorhexidine 2% Cloth) 3 pack UNSCH PRN TOP HYGIENIC CARE 01/06/17 21:45 Senna/Docusate Sodium (Pita-Colace) 1 tab BID PO 01/07/17 09:00 Magnesium Hydroxide (Milk Of Magnesia Liq) 30 ml Q12H PRN PO Mild constipation 01/06/17 21:45 Sennosides (Senokot) 17.2 mg Q12H PRN PO Moderate constipation 01/06/17 21:45 Bisacodyl (Dulcolax Supp) 10 mg DAILY PRN RECTAL SEVERE CONSITIPATION 01/06/17 21:45 Lactulose (Lactulose Liq) 30 ml DAILY PRN PO SEVERE CONSITIPATION 01/06/17 21:45 Sodium Chloride 1,000 ml @ 150 mls/hr Q6H40M IV 01/06/17 22:00 01/07/17 09:55 Levetriacetam 500 mg/Sodium Chloride 105 ml @ 420 mls/hr Q12HR IV 01/07/17 09:00 01/07/17 09:12 Multivitamins 10 ml/Folic Acid 1 mg/Sodium Chloride 510.2 ml @ 125 mls/hr Q24H IV 01/06/17 22:15 01/11/17 22:14 01/07/17 01:55 Thiamine HCl 100 mg/Sodium Chloride 101 ml @ 100 mls/hr Q24H IV 01/06/17 22:15 01/09/17 22:14 01/07/17 00:53 Thiamine HCl (Vitamin B1) 100 mg DAILY PO 01/10/17 09:00 Lorazepam (Ativan Inj) 1 mg Q1H PRN IV PUSH SEIZURES 01/06/17 22:45 Ondansetron HCl (Zofran Inj) 4 mg Q6H PRN IV PUSH NAUSEA OR VOMITING 01/06/17 22:45 Promethazine HCl (Phenergan Inj) 25 mg Q4H PRN IM NAUSEA OR VOMITING 01/06/17 22:45 Oxycodone/ Acetaminophen (Percocet 5-325 Mg) 1 tab Q4H PRN PO PAIN SCALE 1 TO 5 01/06/17 22:45 Oxycodone/ Acetaminophen (Percocet 5-325 Mg) 2 tab Q4H PRN PO PAIN SCALE 6 TO 10 01/06/17 22:45 Labetalol HCl (Trandate Inj) 10 mg Q1H PRN IV PUSH SYS BP GREATER THAN 170 MMHG 01/06/17 22:45 Clonidine (Catapres) 0.1 mg Q6H PRN PO SYS BP GREATER THAN 170 MMHG 01/06/17 22:45 Acetaminophen (Tylenol) 650 mg Q4H PRN PO TEMPERATURE > 101.5 F 01/06/17 22:45 Bacitracin (Baciguent Oint) 1 applic BID TOP 01/07/17 09:00 Potassium Chloride 100 ml @ 50 mls/hr Q2H PRN IV For Potassium 2.8 - 3.2 mEq/L 01/07/17 10:45 Potassium Chloride 100 ml @ 50 mls/hr Q2H PRN IV For Potassium 2.8 - 3.2 mEq/L 01/07/17 10:45 Potassium Bicarb/ Potassium Chloride (K-Lyte Cl Eff) 50 meq UNSCH PRN PO For Potassium 3.3 - 3.5 mEq/L 01/07/17 10:45 Potassium Chloride 100 ml @ 25 mls/hr UNSCH PRN IV For Potassium 3.3 - 3.5 mEq/L 01/07/17 10:45 Potassium Chloride 100 ml @ 50 mls/hr Q2H PRN IV For Potassium 3.3 - 3.5 mEq/L 01/07/17 10:45 Magnesium Sulfate 4 gm/Sodium Chloride 100 ml @ 50 mls/hr UNSCH PRN IV For Magnesium 0.9 - 1.1 mg/dL 01/07/17 10:45 Magnesium Oxide (Mag-Ox) 800 mg UNSCH PRN PO For Magnesium 1.2 - 1.6 mg/dL 01/07/17 10:45 Magnesium Sulfate 2 gm/Sodium Chloride 100 ml @ 50 mls/hr UNSCH PRN IV For Magnesium 1.2 - 1.6 mg/dL 01/07/17 10:45 Potassium Phosphate (K-Phos) 2,000 mg Q4H PRN PO For Phosphorus < 2.5 mg/dL 01/07/17 10:45 Sodium Phosphate 30 mmol/Sodium Chloride 250 ml @ 42 mls/hr UNSCH PRN IV For Phosphorus < 2.5 mg/dL 01/07/17 10:45 Potassium Phosphate (K-Phos) 2,000 mg UNSCH PRN PO/TUBE SEE LABEL COMMENTS 01/07/17 10:45 Potassium Phosphate 30 mmol/ Sodium Chloride 260 ml @ 42 mls/hr UNSCH PRN IV SEE LABEL COMMENTS 01/07/17 10:45 (Sara Antonio) Medical Decision Making MDM Remarks 51 y/o male 1. 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 Alcohol intoxication. (Sara Antonio) Plan Plan Remarks f/u CT Head this am reviewed, stable, cont nonoperative mgt cont serial neuro checks in ISC supportive care, etoh withdrawal precautions nonchemial dvt prophylaxis in view of acute ICH gi prophylaxis (Sara Antonio) Attending Statement As above Continue neuro checks. ETOH precautions Pulmonary. Continue aggressive pulmonary toilette, nasotracheal suction, and breathing treatments with nebulizers. Renal. monitor closely urine output, BUN and creatinine Endocrine. Monitor serial Acu checks and SSI as needed in detail ID monitor for signs of infection Protonix for stress ulcer prophylaxis Andres hose and SCD's for DVT prophylaxis. The exam, history, and the medical decision-making described in the above note were completed with the assistance of the mid-level provider. I reviewed and agree with the findings presented. I attest that I had a [id number] encounter with the patient on the same day, and personally performed and documented my assessment and findings in the medical record. (Michael Pierre MD) Sara Antonio Jan 07, 2017 11:10 Michael Pierre MD Jan 08, 2017 17:29
[2017-01-07 15:48] LABS: MAGNESIUM 1.9 MG/DL (1.5-2.5)
[2017-01-07] MEDS: oxyCODONE/ACETAMINOPHEN 5 MG/325 MG TAB PO PRN ×2 (16:19→22:31)
[2017-01-07] MEDS: POTASSIUM PHOSPHATE MONOBASIC 500 MG TAB PO PRN (22:32)
[2017-01-08] VITALS (14 sets, daily range): BP systolic 125–169; BP diastolic 65–79; PULSE 49–62; RESP 14–21; TEMP 97.8–98.6; O2SAT 94–97
[2017-01-08] MEDS: POTASSIUM PHOSPHATE MONOBASIC 500 MG TAB PO PRN (02:38)
[2017-01-08 04:51] LABS: AUTOMATED NEUTROPHIL # 4.9 TH/MM3 (1.8-7.7); BASOPHIL % 0.6 % (0.0-2.0); EOSINOPHIL # 0.4 TH/MM3 (0-0.4); EOSINOPHIL % 4.4 % (0.0-4.0); HEMATOCRIT 37.2 % (39.0-51.0); HEMO FLAGS DIFF FINAL; LYMPH % 34.1 % (9.0-44.0); MEAN CELL VOLUME 90.7 FL (80.0-100.0); MEAN CORPUSCULAR HEMOGLOBIN 31.4 PG (27.0-34.0); MEAN CORPUSCULAR HGB CONC 34.6 % (32.0-36.0); MONO % 5.9 % (0.0-8.0); PLATELET COUNT 193 TH/MM3 (150-450); WHITE BLOOD COUNT 8.8 TH/MM3 (4.0-11.0)
[2017-01-08 05:23] LABS: BICARBONATE 22.3 MEQ/L (21.0-32.0); CALCIUM-PROTEIN CORRECTED 7.9 MG/DL (8.5-10.1); POTASSIUM 3.7 MEQ/L (3.5-5.1); TOTAL BILIRUBIN ADULT 0.5 MG/DL (0.2-1.0)
[2017-01-08] MEDS: SODIUM CHLOR 0.9% 1000 ML INJ 1,000 ML IV SCH ×3 (06:36→16:58)
[2017-01-08] MEDS: oxyCODONE/ACETAMINOPHEN 5 MG/325 MG TAB PO PRN ×3 (08:01→17:33)
[2017-01-08] MEDS: SODIUM CHLORIDE 0.9% FLUSH 10 ML FLUSH IV FLUSH SCH ×2 (08:18→20:04)
[2017-01-08] MEDS: DOCUSATE SODIUM 50 MG/SENNA 8.6 MG TAB PO SCH ×2 (08:18→20:04)
[2017-01-08] MEDS: FAMOTIDINE 20 MG/2 ML VIAL IV PUSH SCH ×2 (08:18→20:04)
[2017-01-08] MEDS: levETIRAcetam INJ 500 MG in SODIUM CHLORIDE 0.9% INJ 100 ML IV SCH ×2 (08:19→20:03)
[2017-01-08] MEDS: BACITRACIN TOP OINT 15 GM TUBE TOP SCH ×2 (09:00→20:04)
--- NOTE | 2017-01-08 09:58 | HHI.CCPN ---
Subjective Remarks/Hospital Course Middle-aged male brought in by EMS after witnessed fall at [facility]. Patient was reportedly drinking alcohol when he was seen falling backwards hitting his head on the pavement. He appeared to be intoxicated heavily and on arrival in the ER underwent imaging studies including a head CT which revealed subarachnoid hemorrhage. Neurosurgery was contacted by ER physician and requested admission by critical care medicine service with neurosurgery consult. Patient was accepted for admission by critical care medicine and I evaluated the patient while he was in the ER. At that time he was stuporous/ encephalopathic arousing to painful stimuli. His labs were pending at the time of my evaluation. History was obtained by reviewing records and discussion with Dr. Valentin. 01/07: Lying in bed complaints of headache otherwise awake alert. CT of the head shows stable subarachnoid hemorrhage but more prominent intraparenchymal hemorrhage on the right frontoparietal and temporal regions largest measuring frontal 2.6 cm. Na 133. I have increased NS to 150 ml per hour 01/08: Still complaining of headache Percocet is not helping. Will give single dose of Dilaudid 1 mg IV. Sodium 129 started on 2% saline. Repeat sodium in the afternoon Objective Vital Signs Date Time Temp Pulse Resp B/P (MAP) Pulse Ox O2 Delivery O2 Flow Rate FiO2 01/08/17 08:29 97.8 59 14 144/73 (96) 97 01/08/17 07:48 Room Air 01/07/17 07:00 2.00 Intake and Output 01/08/17 01/08/17 01/09/17 08:00 16:00 00:00 Intake Total 1872.2 ml 100 ml Output Total 750 ml Balance 1122.2 ml 100 ml Result Diagram: 01/08/17 0407 01/08/17 0407 Imaging Last Impressions Head CT 01/06/17 0000 Signed Impressions: Service Date/Time: Friday, January 06, 2017 20:45 - CONCLUSION: Closed head injury with subarachnoid hemorrhage amount the frontal region bilaterally , right anterior temporal hematoma and smaller hemorrhages in the lateral right temporal lobe and lateral right parietal cortex. Boyd Lopez MD Cervical Spine CT 01/06/17 0000 Signed Impressions: Service Date/Time: Friday, January 06, 2017 20:46 - CONCLUSION: 1. No evidence of compression deformity or spondylolisthesis. 2. Multilevel discogenic degenerative changes with prominent disc osteophyte complex indenting on the thecal sac at C5-6 and possible left sided protrusion at C3-4 Boyd Lopez MD Objective Remarks GENERAL: Well-developed, and nourished, in mild distress, due to headache SKIN: Focused skin assessment warm and dry. HEAD: Atraumatic. Normocephalic. EYES: Pupils equal and round. No scleral icterus. No injection or drainage. ENT: No nasal bleeding or discharge. NECK: Trachea midline. CARDIOVASCULAR: Regular rate and rhythm. No murmur appreciated. RESPIRATORY: No accessory muscle use. No respiratory distress. Clear to auscultation. Breath sounds equal bilaterally. GASTROINTESTINAL: Abdomen soft, non-tender, nondistended, and no guarding. Hepatic and splenic margins not palpable. No pulsatile mass. MUSCULOSKELETAL: No obvious deformities. No clubbing. No cyanosis. No edema. Full range of motion. NEUROLOGICAL: Awake alert complaints of headache. No obvious cranial nerve deficits. Motor grossly within normal limits. A/P Assessment and Plan Middle aged male with: TBI with traumatic subarachnoid hemorrhage, right frontal temporal parietal IPH Encephalopathy Alcohol intoxication Hyponatremia Headache Plan: Neuro: Follow neuro status. Neurosurgery - Dr. Beck. Repeat head CT 01/07 stable subarachnoid hemorrhage, more prominent right-sided intraparenchymal hemorrhages. Keppra 500 mg IV every 12 hourly for seizure prophylaxis. Percocet PRN for Pain. Dilaudid IV for breakthrough pain EtOH 302. CIWA protocol. Supplement Thiamine. Keep Na >140, 2% saline started , continue NS Cardiovascular: IV hydration, watch for hypotension. NS 150 ml per hour. Start 2% saline at 20 ml per hour Pulmonary: Supplemental O2 as needed. Protecting airway currently. If neurologic status worsens may require endotracheal intubation for airway protection. GI/liver: Clear liquid diet, advance as tolerated per speech request Renal/: IV hydration, strict intake output, monitor and replete electro lites, follow BUN/creatinine. ID: No antibiotics at this time. Heme: Follow CBC and coags Endocrine: SSI for glycemic control if needed Prophylaxis: Pepcid/SCDs. No heparin or Lovenox in view of subarachnoid hemorrhage. Further recommendations per neurosurgery. Level 3 Continue ICU care for and frequent neuro checks due to slight expansion in the right intraparenchymal hemorrhage Jeremiah Rebolledo MD Jan 08, 2017 09:58
[2017-01-08] MEDS ORDERED: SODIUM CHLORIDE 23.4% INJ 188 MEQ in SODIUM CHLOR 0.9% 1000 ML INJ 1,000 ML IV SCH (10:00)
[2017-01-08] MEDS ORDERED: HYDROmorphone HCL PF 1 MG/ML VIAL IV PUSH PRN (10:00)
[2017-01-08] MEDS ORDERED: HYDROmorphone HCL PF 1 MG/ML VIAL IV PUSH ONE (10:00)
--- NOTE | 2017-01-08 10:45 | HHI.NSPN ---
History Chief Complaint: Headaches. s/p TBI. Interval History Middle-aged gentleman with a history of alcohol abuse and apparently was intoxicated and fell it is had with questionable loss of consciousness. He was brought to [facility] emergency room and trauma workup included a CT of the head which reveals 2.6 cm right temporal lobe hemorrhage along with scattered contusions long with traumatic subarachnoid hemorrhage involving the interhemispheric fissure and the bilateral sylvian fissures without mass effect or midline shift. CT cervical spine reveals some degenerative changes that any fractures. He smells of alcohol is heavily intoxicated and therefore it is difficult to obtain any history. He will open his eyes slightly to the stimulation and move all extremities and verbalizes with slurred speech. 01/08: Pt awake and alert. Complains of headaches. Mild nausea when he gets up. No paresthesias. No weakness. Review of Systems General: Negative for: fever, chills, insomnia Respiratory: Negative for: shortness of breath, cough, sputum Cardiovascular: Negative for: chest pain Gastrointestinal: Positive for: nausea (mild when he gets up.), Negative for: vomitting, diarrhea, constipation Exam Results Vital Signs Date Time Temp Pulse Resp B/P (MAP) Pulse Ox O2 Delivery O2 Flow Rate FiO2 01/08/17 08:29 97.8 59 14 144/73 (96) 97 01/08/17 07:48 Room Air 01/07/17 07:00 2.00 Intake and Output 01/08/17 01/08/17 01/09/17 08:00 16:00 00:00 Intake Total 1872.2 ml 100 ml Output Total 750 ml Balance 1122.2 ml 100 ml Physical Examination General: Pt awake and alert. Resting comfortably in bed. VSS. Eyes: Pupils 3mm bilaterally reactive bilaterally. Sclera anicteric. Resp: CTA bilaterally Heart: NSR no murmurs Abd: Soft positive bs Skin: No cyanosis or erythema Muscle: Moves all 4 extremities well. Pt states he ambulates short distance to the bathroom. Neuro: Pt awake and alert. Pupils 3mm bilaterally reactive bilaterally. EOMs intact. Follows commands well. Speech soft but answers questions appropriately. Lab, Micro, Other Results Last Impressions Head CT 01/07/17 0600 Signed Impressions: Service Date/Time: December 04:08 - CONCLUSION: 1. Patchy parenchymal hemorrhage as above, slightly increased in size were more conspicuous on the right but there remains no midline shift. 2. Basilar predominant subarachnoid blood is not significantly changed. Amaury Gramajo MD Chest X-Ray 01/06/17 0000 Signed Impressions: Service Date/Time: Friday, January 06, 2017 22:06 - CONCLUSION: The lungs are clear. No infiltrates seen. Boyd Lopez MD Cervical Spine CT 01/06/17 0000 Signed Impressions: Service Date/Time: Friday, January 06, 2017 20:46 - CONCLUSION: 1. No evidence of compression deformity or spondylolisthesis. 2. Multilevel discogenic degenerative changes with prominent disc osteophyte complex indenting on the thecal sac at C5-6 and possible left sided protrusion at C3-4 Boyd Lopez MD Laboratory Tests Test 01/07/17 14:32 01/08/17 04:07 Phosphorus Level 2.3 MG/DL 3.1 MG/DL Magnesium Level 1.9 MG/DL 1.7 MG/DL White Blood Count 8.8 TH/MM3 Red Blood Count 4.10 MIL/MM3 Hemoglobin 12.9 GM/DL Hematocrit 37.2 % Mean Corpuscular Volume 90.7 FL Mean Corpuscular Hemoglobin 31.4 PG Mean Corpuscular Hemoglobin Concent 34.6 % Red Cell Distribution Width 13.0 % Platelet Count 193 TH/MM3 Mean Platelet Volume 8.1 FL Neutrophils (%) (Auto) 55.0 % Lymphocytes (%) (Auto) 34.1 % Monocytes (%) (Auto) 5.9 % Eosinophils (%) (Auto) 4.4 % Basophils (%) (Auto) 0.6 % Neutrophils # (Auto) 4.9 TH/MM3 Lymphocytes # (Auto) 3.0 TH/MM3 Monocytes # (Auto) 0.5 TH/MM3 Eosinophils # (Auto) 0.4 TH/MM3 Basophils # (Auto) 0.0 TH/MM3 CBC Comment DIFF FINAL Differential Comment Blood Urea Nitrogen 7 MG/DL Creatinine 0.43 MG/DL Random Glucose 76 MG/DL Total Protein 5.8 GM/DL Albumin 3.0 GM/DL Calcium Level 7.2 MG/DL Alkaline Phosphatase 70 U/L Aspartate Amino Transf (AST/SGOT) 16 U/L Alanine Aminotransferase (ALT/SGPT) 29 U/L Total Bilirubin 0.5 MG/DL Sodium Level 129 MEQ/L Potassium Level 3.7 MEQ/L Chloride Level 100 MEQ/L Carbon Dioxide Level 22.3 MEQ/L Anion Gap 7 MEQ/L Estimat Glomerular Filtration Rate 207 ML/MIN Protein Corrected Calcium 7.9 MG/DL 01/08/17 01/08/17 01/09/17 15:00 23:00 07:00 Intake Total 100 ml Balance 100 ml IV Total 100 ml Medical Decision Making Impression and Plan A: 51 y/o M s/p traumatic brain injury with a right temporal lobe hemorrhage along with scattered contusions and subarachnoid hemorrhage without mass effect or midline shift. 2. Alcohol intoxication. P: Continue to monitor neuro exam Continue to increase activity with assistance. Continue with DVT prophylaxis Continue with GI prophylaxis Continue with antiepileptic prophylaxis. Chidi Julian Jan 08, 2017 10:45 am
[2017-01-08] MEDS: THIAMINE INJ 100 MG in SODIUM CHLORIDE 0.9% INJ 100 ML IV SCH (22:21)
[2017-01-08] MEDS: MULTIVITAMIN INJ 10 ML, FOLIC ACID INJ 1 MG in SODIUM CHLORID 0.9% 500 ML INJ 500 ML IV SCH (23:37)
[2017-01-09] VITALS (11 sets, daily range): BP systolic 126–163; BP diastolic 58–96; PULSE 56–67; RESP 16–25; TEMP 98–98.5; O2SAT 94–100
[2017-01-09] MEDS: CHLORHEXIDINE GLUCONATE 2 % 1 PACK (2 CLOTHS) TOP SCH (02:57)
[2017-01-09] MEDS: oxyCODONE/ACETAMINOPHEN 5 MG/325 MG TAB PO PRN ×2 (05:11→16:12)
[2017-01-09 05:55] LABS: ALT (GPT) 25 U/L (12-78); ANION GAP 9 MEQ/L (5-15); AST (GOT) 12 U/L (15-37); BICARBONATE 22.7 MEQ/L (21.0-32.0); BLOOD UREA NITROGEN 4 MG/DL (7-18); CHLORIDE 100 MEQ/L (98-107); GLOMERULAR FILTRATION RATE 219 ML/MIN (>89); MAGNESIUM 1.9 MG/DL (1.5-2.5); POTASSIUM 3.6 MEQ/L (3.5-5.1); SODIUM (NA) 132 MEQ/L (136-145)
[2017-01-09 05:57] LABS: ALKALINE PHOSPHATASE 69 U/L (45-117); TOTAL BILIRUBIN ADULT 0.4 MG/DL (0.2-1.0)
[2017-01-09] MEDS: SODIUM CHLOR 0.9% 1000 ML INJ 1,000 ML IV SCH ×2 (08:40→16:14)
[2017-01-09] MEDS: SODIUM CHLORIDE 1 GRAM TAB PO SCH ×2 (08:48→20:53)
[2017-01-09] MEDS: FAMOTIDINE 20 MG TAB PO SCH ×2 (08:48→18:00)
[2017-01-09] MEDS: DOCUSATE SODIUM 50 MG/SENNA 8.6 MG TAB PO SCH ×2 (08:48→20:53)
[2017-01-09] MEDS: BACITRACIN TOP OINT 15 GM TUBE TOP SCH ×2 (09:00→21:00)
[2017-01-09] MEDS: SODIUM CHLORIDE 0.9% FLUSH 10 ML FLUSH IV FLUSH SCH ×2 (09:00→20:55)
--- NOTE | 2017-01-09 10:24 | HHI.NSPN ---
(Chidi Julian) History Chief Complaint: Headaches. s/p TBI. (Chidi Julian) Interval History Middle-aged gentleman with a history of alcohol abuse and apparently was intoxicated and fell it is had with questionable loss of consciousness. He was brought to [facility] emergency room and trauma workup included a CT of the head which reveals 2.6 cm right temporal lobe hemorrhage along with scattered contusions long with traumatic subarachnoid hemorrhage involving the interhemispheric fissure and the bilateral sylvian fissures without mass effect or midline shift. CT cervical spine reveals some degenerative changes that any fractures. He smells of alcohol is heavily intoxicated and therefore it is difficult to obtain any history. He will open his eyes slightly to the stimulation and move all extremities and verbalizes with slurred speech. 01/08: Pt awake and alert. Complains of headaches. Mild nausea when he gets up. No paresthesias. No weakness. 01/09: Pt awake and alert. Complains of headaches. No n/v. More alert. States ambulates with some unsteadiness. (Chidi Julian) Review of Systems General: Negative for: fever, chills, insomnia Respiratory: Negative for: shortness of breath, cough, sputum Cardiovascular: Negative for: chest pain Gastrointestinal: Negative for: nausea, vomitting, diarrhea, constipation ( Chidi Julian) Exam Results Vital Signs Date Time Temp Pulse Resp B/P (MAP) Pulse Ox O2 Delivery O2 Flow Rate FiO2 01/09/17 08:00 60 01/09/17 08:00 98.5 22 163/96 (118) 94 01/08/17 20:35 21 01/08/17 07:48 Room Air 01/07/17 07:00 2.00 Intake and Output 01/09/17 01/09/17 01/10/17 08:00 16:00 00:00 Intake Total 1130 ml 1500 ml Output Total 1800 ml Balance -670 ml 1500 ml (Chidi Julian) Physical Examination General: Pt resting comfortably in bed with stable vital signs Eyes. Pupils equal and sclera anicteric. Resp: CTA bilaterally Heart: NSR no murmurs Abd: Soft positive bs Skin: No cyanosis or erythema Muscle: Moves all 4 extremities with good strength. Neuro: Pt awakens to voice. More alert. Pupils 3mm bilaterally, reactive bilaterally. Follows commands well. Speech clear and appropriate. (Chidi Julian) Lab, Micro, Other Results Last Impressions Head CT 01/07/17 0600 Signed Impressions: Service Date/Time: December 04:08 - CONCLUSION: 1. Patchy parenchymal hemorrhage as above, slightly increased in size were more conspicuous on the right but there remains no midline shift. 2. Basilar predominant subarachnoid blood is not significantly changed. Amaury Gramajo MD Chest X-Ray 01/06/17 0000 Signed Impressions: Service Date/Time: Friday, January 06, 2017 22:06 - CONCLUSION: The lungs are clear. No infiltrates seen. Boyd Lopez MD Cervical Spine CT 01/06/17 0000 Signed Impressions: Service Date/Time: Friday, January 06, 2017 20:46 - CONCLUSION: 1. No evidence of compression deformity or spondylolisthesis. 2. Multilevel discogenic degenerative changes with prominent disc osteophyte complex indenting on the thecal sac at C5-6 and possible left sided protrusion at C3-4 Boyd Lopez MD Laboratory Tests Test 01/08/17 14:13 01/09/17 04:41 Sodium Level 127 MEQ/L 132 MEQ/L Blood Urea Nitrogen 4 MG/DL Creatinine 0.41 MG/DL Random Glucose 87 MG/DL Total Protein 5.8 GM/DL Albumin 3.1 GM/DL Calcium Level 7.6 MG/DL Magnesium Level 1.9 MG/DL Alkaline Phosphatase 69 U/L Aspartate Amino Transf (AST/SGOT) 12 U/L Alanine Aminotransferase (ALT/SGPT) 25 U/L Total Bilirubin 0.4 MG/DL Potassium Level 3.6 MEQ/L Chloride Level 100 MEQ/L Carbon Dioxide Level 22.7 MEQ/L Anion Gap 9 MEQ/L Estimat Glomerular Filtration Rate 219 ML/MIN 01/09/17 01/09/17 01/10/17 15:00 23:00 07:00 Intake Total 1500 ml Balance 1500 ml IV Total 1500 ml (Chidi Julian) Medical Decision Making Impression and Plan A: 51 y/o M s/p traumatic brain injury with a right temporal lobe hemorrhage along with scattered contusions and subarachnoid hemorrhage without mass effect or midline shift. 2. Alcohol intoxication. P: Continue to monitor neuro exam Continue to increase activity with assistance. Continue with DVT prophylaxis Continue with GI prophylaxis Continue with antiepileptic prophylaxis. Neurosurgically stable to transfer to . (Chidi Julian) Attending Statement The exam, history, and the medical decision-making described in the above note were completed with the assistance of the mid-level provider. I reviewed and agree with the findings presented. I attest that I had a [id number] encounter with the patient on the same day, and personally performed and documented my assessment and findings in the medical record. Stable neurologically with no early alcohol withdrawal symptoms noted. Transfer to floor and continue to increase activity status as tolerated. Discussed with the electronics instructor Dr. Rebolledo. (Boni Beck MD) Chidi Julian Jan 09, 2017 10:24 Boni Beck MD Jan 09, 2017 12:14
--- NOTE | 2017-01-09 10:47 | HHI.CCPN ---
Subjective Remarks/Hospital Course Middle-aged male brought in by EMS after witnessed fall at [facility]. Patient was reportedly drinking alcohol when he was seen falling backwards hitting his head on the pavement. He appeared to be intoxicated heavily and on arrival in the ER underwent imaging studies including a head CT which revealed subarachnoid hemorrhage. Neurosurgery was contacted by ER physician and requested admission by critical care medicine service with neurosurgery consult. Patient was accepted for admission by critical care medicine and I evaluated the patient while he was in the ER. At that time he was stuporous/ encephalopathic arousing to painful stimuli. His labs were pending at the time of my evaluation. History was obtained by reviewing records and discussion with Dr. Valentin. 01/07: Lying in bed complaints of headache otherwise awake alert. CT of the head shows stable subarachnoid hemorrhage but more prominent intraparenchymal hemorrhage on the right frontoparietal and temporal regions largest measuring frontal 2.6 cm. Na 133. I have increased NS to 150 ml per hour 01/08: Still complaining of headache Percocet is not helping. Will give single dose of Dilaudid 1 mg IV. Sodium 129 started on 2% saline. Repeat sodium in the afternoon 01/09: Patient is neurologically stable. Sodium is 132. We'll change to by mouth sodium tablets. Keppra change to by mouth. Tolerating by mouth diet Objective Vital Signs Date Time Temp Pulse Resp B/P (MAP) Pulse Ox O2 Delivery O2 Flow Rate FiO2 01/09/17 08:00 60 01/09/17 08:00 98.5 22 163/96 (118) 94 01/08/17 20:35 21 01/08/17 07:48 Room Air 01/07/17 07:00 2.00 Intake and Output 01/09/17 01/09/17 01/10/17 08:00 16:00 00:00 Intake Total 1130 ml 1500 ml Output Total 1800 ml Balance -670 ml 1500 ml Result Diagram: 01/08/17 0407 01/09/17 0441 Imaging Last Impressions Head CT 01/06/17 0000 Signed Impressions: Service Date/Time: Friday, January 06, 2017 20:45 - CONCLUSION: Closed head injury with subarachnoid hemorrhage amount the frontal region bilaterally , right anterior temporal hematoma and smaller hemorrhages in the lateral right temporal lobe and lateral right parietal cortex. Boyd Lopez MD Cervical Spine CT 01/06/17 0000 Signed Impressions: Service Date/Time: Friday, January 06, 2017 20:46 - CONCLUSION: 1. No evidence of compression deformity or spondylolisthesis. 2. Multilevel discogenic degenerative changes with prominent disc osteophyte complex indenting on the thecal sac at C5-6 and possible left sided protrusion at C3-4 Boyd Lopez MD Objective Remarks GENERAL: Well-developed, and nourished, in no distress SKIN: Focused skin assessment warm and dry. HEAD: Atraumatic. Normocephalic. EYES: Pupils equal and round. No scleral icterus. No injection or drainage. ENT: No nasal bleeding or discharge. NECK: Trachea midline. CARDIOVASCULAR: Regular rate and rhythm. No murmur appreciated. RESPIRATORY: No accessory muscle use. No respiratory distress. Clear to auscultation. Breath sounds equal bilaterally. GASTROINTESTINAL: Abdomen soft, non-tender, nondistended, and no guarding. Hepatic and splenic margins not palpable. No pulsatile mass. MUSCULOSKELETAL: No obvious deformities. No clubbing. No cyanosis. No edema. Full range of motion. NEUROLOGICAL: Awake alert complaints of headache. No obvious cranial nerve deficits. Motor grossly within normal limits. A/P Assessment and Plan Middle aged male with: TBI with traumatic subarachnoid hemorrhage, right frontal temporal parietal IPH Encephalopathy Alcohol intoxication Hyponatremia Headache Plan: Neuro: Follow neuro status. Neurosurgery - Dr. Beck. Repeat head CT 01/07 stable subarachnoid hemorrhage, more prominent right-sided intraparenchymal hemorrhages. For the repeat CT scans per neurosurgery Keppra 500 mg IV every 12 hourly for seizure prophylaxis- change to PO Percocet PRN for Pain. Dilaudid IV for breakthrough pain EtOH 302 on admission. CIWA protocol. Supplement Thiamine. Keep Na >140, DC 2% , continue NS, added NaCL tablets Cardiovascular: IV hydration, watch for hypotension. NS 100 ml per hour. Pulmonary: Supplemental O2 as needed. Protecting airway currently. Aggressive pulmonary toilet GI/liver: Regular diet Renal/: IV hydration, strict intake output, monitor and replete electro lites, follow BUN/creatinine. ID: No antibiotics at this time. Heme: Follow CBC and coags Endocrine: SSI for glycemic control if needed Prophylaxis: Pepcid/SCDs. No heparin or Lovenox in view of subarachnoid hemorrhage. increase activity Further recommendations per neurosurgery. Level 2 Transfer to N., consult hospitalist to assume care in a.m. Jeremiah Rebolledo MD Jan 09, 2017 10:47
[2017-01-09] MEDS: levETIRAcetam 500 MG TAB PO SCH ×2 (12:07→20:53)
[2017-01-09] MEDS: MULTIVITAMIN INJ 10 ML, FOLIC ACID INJ 1 MG in SODIUM CHLORID 0.9% 500 ML INJ 500 ML IV SCH (22:20)
[2017-01-10] VITALS: BP 126/58; PULSE 67; RESP 16; TEMP 98.4; O2SAT 96
[2017-01-10 04:00] VITALS: BP 148/64; PULSE 62; RESP 16; TEMP 98.3; O2SAT 96
[2017-01-10] MEDS: CHLORHEXIDINE GLUCONATE 2 % 1 PACK (2 CLOTHS) TOP SCH (04:19)
[2017-01-10] MEDS: oxyCODONE/ACETAMINOPHEN 5 MG/325 MG TAB PO PRN (04:47)
[2017-01-10 08:00] VITALS: BP 146/76; PULSE 67; RESP 17; TEMP 98.6; O2SAT 96
--- NOTE | 2017-01-10 08:58 | HHI.PR ---
Subjective Remarks Critical Care Notes: Middle-aged male brought in by EMS after witnessed fall at [facility]. Patient was reportedly drinking alcohol when he was seen falling backwards hitting his head on the pavement. He appeared to be intoxicated heavily and on arrival in the ER underwent imaging studies including a head CT which revealed subarachnoid hemorrhage. Neurosurgery was contacted by ER physician and requested admission by critical care medicine service with neurosurgery consult. Patient was accepted for admission by critical care medicine and I evaluated the patient while he was in the ER. At that time he was stuporous/ encephalopathic arousing to painful stimuli. His labs were pending at the time of my evaluation. History was obtained by reviewing records and discussion with Dr. Valentin. 01/07: Lying in bed complaints of headache otherwise awake alert. CT of the head shows stable subarachnoid hemorrhage but more prominent intraparenchymal hemorrhage on the right frontoparietal and temporal regions largest measuring frontal 2.6 cm. Na 133. I have increased NS to 150 ml per hour 01/08: Still complaining of headache Percocet is not helping. Will give single dose of Dilaudid 1 mg IV. Sodium 129 started on 2% saline. Repeat sodium in the afternoon 01/09: Patient is neurologically stable. Sodium is 132. We'll change to by mouth sodium tablets. Keppra change to by mouth. Tolerating by mouth diet Hospitalist Notes: 01/10: Transferred to Hospitalist starting Today, I came to the patients room due to that nurse tells me the patient wants to sign Against Medical Advise, was discussed the risks of his Behavior patient is alert and oriented, but states he has to take care of other people and needs to go now, He is not been cleared yet by Neurosurgery, he accept the risk that may include , and signed AMA. Objective Vital Signs Date Time Temp Pulse Resp B/P (MAP) Pulse Ox O2 Delivery O2 Flow Rate FiO2 01/10/17 08:00 98.6 67 17 146/76 (99) 96 01/10/17 04:00 98.3 62 16 148/64 (92) 96 01/10/17 00:00 98.4 67 16 126/58 (80) 96 01/09/17 20:00 98.3 67 16 126/58 (80) 95 01/09/17 16:34 98.2 61 17 143/76 (98) 97 01/09/17 15:32 67 01/09/17 12:00 60 01/09/17 12:00 98.0 65 25 160/86 (110) 100 01/09/17 10:46 61 I/O 01/09/17 01/09/17 01/09/17 01/10/17 01/10/17 01/10/17 07:00 15:00 23:00 07:00 15:00 23:00 Intake Total 1130 ml 1500 ml 360 ml Output Total 1800 ml Balance -670 ml 1500 ml 360 ml Intake Oral 80 ml 360 ml IV Total 1050 ml 1500 ml Output Urine Total 1800 ml # Voids 3 Result Diagram: 01/08/17 0407 01/10/17 0513 Imaging Last Impressions Head CT 01/07/17 0600 Signed Impressions: Service Date/Time: December 04:08 - CONCLUSION: 1. Patchy parenchymal hemorrhage as above, slightly increased in size were more conspicuous on the right but there remains no midline shift. 2. Basilar predominant subarachnoid blood is not significantly changed. Amaury Gramajo MD Chest X-Ray 01/06/17 0000 Signed Impressions: Service Date/Time: Friday, January 06, 2017 22:06 - CONCLUSION: The lungs are clear. No infiltrates seen. Boyd Lopez MD Cervical Spine CT 01/06/17 0000 Signed Impressions: Service Date/Time: Friday, January 06, 2017 20:46 - CONCLUSION: 1. No evidence of compression deformity or spondylolisthesis. 2. Multilevel discogenic degenerative changes with prominent disc osteophyte complex indenting on the thecal sac at C5-6 and possible left sided protrusion at C3-4 Boyd Lopez MD Procedures None Other Results Laboratory Tests Test 01/06/17 21:27 01/06/17 22:36 01/06/17 23:30 01/08/17 04:07 Prothrombin Time 10.0 SEC Prothromb Time International Ratio 0.9 RATIO Activated Partial Thromboplast Time 26.4 SEC Ethyl Alcohol Level 302 MG/DL Urine Opiates Screen NEG Urine Barbiturates Screen NEG Urine Amphetamines Screen NEG Urine Benzodiazepines Screen NEG Urine Cocaine Screen NEG Urine Cannabinoids Screen NEG Nasal Screen MRSA (PCR) MRSA NOT DETECTED White Blood Count 8.8 TH/MM3 Red Blood Count 4.10 MIL/MM3 Hemoglobin 12.9 GM/DL Hematocrit 37.2 % Mean Corpuscular Volume 90.7 FL Mean Corpuscular Hemoglobin 31.4 PG Mean Corpuscular Hemoglobin Concent 34.6 % Red Cell Distribution Width 13.0 % Platelet Count 193 TH/MM3 Mean Platelet Volume 8.1 FL Neutrophils (%) (Auto) 55.0 % Lymphocytes (%) (Auto) 34.1 % Monocytes (%) (Auto) 5.9 % Eosinophils (%) (Auto) 4.4 % Basophils (%) (Auto) 0.6 % Neutrophils # (Auto) 4.9 TH/MM3 Lymphocytes # (Auto) 3.0 TH/MM3 Monocytes # (Auto) 0.5 TH/MM3 Eosinophils # (Auto) 0.4 TH/MM3 Basophils # (Auto) 0.0 TH/MM3 CBC Comment DIFF FINAL Differential Comment Protein Corrected Calcium 7.9 MG/DL Phosphorus Level 3.1 MG/DL Test 01/09/17 04:41 01/10/17 05:13 Blood Urea Nitrogen 4 MG/DL Creatinine 0.41 MG/DL Random Glucose 87 MG/DL Total Protein 5.8 GM/DL Albumin 3.1 GM/DL Calcium Level 7.6 MG/DL Magnesium Level 1.9 MG/DL Alkaline Phosphatase 69 U/L Aspartate Amino Transf (AST/SGOT) 12 U/L Alanine Aminotransferase (ALT/SGPT) 25 U/L Total Bilirubin 0.4 MG/DL Sodium Level 132 MEQ/L 137 MEQ/L Potassium Level 3.6 MEQ/L Chloride Level 100 MEQ/L Carbon Dioxide Level 22.7 MEQ/L Anion Gap 9 MEQ/L Estimat Glomerular Filtration Rate 219 ML/MIN Objective Remarks GENERAL: Well-developed, and nourished, in no distress SKIN: Focused skin assessment warm and dry. HEAD: Atraumatic. Normocephalic. EYES: Pupils equal and round. No scleral icterus. No injection or drainage. ENT: No nasal bleeding or discharge. NECK: Trachea midline. CARDIOVASCULAR: Regular rate and rhythm. No murmur appreciated. RESPIRATORY: No accessory muscle use. No respiratory distress. Clear to auscultation. Breath sounds equal bilaterally. GASTROINTESTINAL: Abdomen soft, non-tender, nondistended, and no guarding. Hepatic and splenic margins not palpable. No pulsatile mass. MUSCULOSKELETAL: No obvious deformities. No clubbing. No cyanosis. No edema. Full range of motion. NEUROLOGICAL: Awake alert complaints of headache. No obvious cranial nerve deficits. Motor grossly within normal limits. A/P Assessment and Plan TBI with traumatic subarachnoid hemorrhage, right frontal temporal parietal IPH Encephalopathy Alcohol intoxication Hyponatremia Headache Plan: Neuro: Follow neuro status. Neurosurgery - Dr. Beck. Repeat head CT 01/07 stable subarachnoid hemorrhage, more prominent right-sided intraparenchymal hemorrhages. For the repeat CT scans per neurosurgery Keppra 500 mg IV every 12 hourly for seizure prophylaxis- change to PO Percocet PRN for Pain. Dilaudid IV for breakthrough pain EtOH 302 on admission. CIWA protocol. Supplement Thiamine. Keep Na >140, DC 2% , continue NS, added NaCL tablets Cardiovascular: IV hydration, watch for hypotension. NS 100 ml per hour. Pulmonary: Supplemental O2 as needed. Protecting airway currently. Aggressive pulmonary toilet GI/liver: Regular diet Renal/: IV hydration, strict intake output, monitor and replete electro lites, follow BUN/creatinine. ID: No antibiotics at this time. Heme: Follow CBC and coags Endocrine: SSI for glycemic control if needed Prophylaxis: Pepcid/SCDs. No heparin or Lovenox in view of subarachnoid hemorrhage. increase activity Further recommendations per neurosurgery. Patient Decided to sign against medical advise and left the hospital, discussed with him and nurse Joana in the room. Discharge Planning Signed against medical advise. Lowell Walker MD Jan 10, 2017 08:58
[2017-01-10] MEDS ORDERED: THIAMINE HCL 100 MG TAB PO SCH (09:00)
--- NOTE | 2017-01-10 09:01 | HHI.DS ---
Discharge Summary Admission Date Jan 06, 2017 at 21:49 Discharge Date: Jan 10, 2017 Admitting Diagnosis subarachnoid hemorrhage, closed head injury (1) Subarachnoid hemorrhage ICD Code: I60.9 - Nontraumatic subarachnoid hemorrhage, unspecified Diagnosis: Principal (2) Alcohol intoxication ICD Code: F10.929 - Alcohol use, unspecified with intoxication, unspecified Diagnosis: Principal (3) Status post fall ICD Code: Z91.81 - History of falling Diagnosis: Principal Procedures None Brief History - From Admission HPI Middle-aged male brought in by EMS after witnessed fall at [facility]. Patient was reportedly drinking alcohol when he was seen falling backwards hitting his head on the pavement. He appeared to be intoxicated heavily and on arrival in the ER underwent imaging studies including a head CT which revealed subarachnoid hemorrhage. Neurosurgery was contacted by ER physician and requested admission by critical care medicine service with neurosurgery consult. Patient was accepted for admission by critical care medicine and I evaluated the patient while he was in the ER. At that time he was stuporous/ encephalopathic arousing to painful stimuli. His labs were pending at the time of my evaluation. History was obtained by reviewing records and discussion with Dr. Valentin. History [facility] Past Medical History Medical History: Unable to Obtain Social History Alcohol Use: Yes Tobacco Use: Yes Allergies-Medications Allergies-Medications Reported Meds & Prescriptions Reported Meds & Active Scripts Active Active Prescriptions or Reported Medications Unobtainable ROS Review of Systems ROS Limitations: Intoxication Except as stated in HPI: all other systems reviewed are Neg CBC/BMP: 01/08/17 0407 01/10/17 0513 Significant Findings Laboratory Tests Test 01/07/17 14:32 01/08/17 04:07 01/08/17 14:13 01/09/17 04:41 Phosphorus Level 2.3 MG/DL (2.5-4.9) Red Blood Count 4.10 MIL/MM3 (4.50-5.90) Hemoglobin 12.9 GM/DL (13.0-17.0) Hematocrit 37.2 % (39.0-51.0) Eosinophils (%) (Auto) 4.4 % (0.0-4.0) Creatinine 0.43 MG/DL (0.60-1.30) 0.41 MG/DL (0.60-1.30) Total Protein 5.8 GM/DL (6.4-8.2) 5.8 GM/DL (6.4-8.2) Albumin 3.0 GM/DL (3.4-5.0) 3.1 GM/DL (3.4-5.0) Calcium Level 7.2 MG/DL (8.5-10.1) 7.6 MG/DL (8.5-10.1) Sodium Level 129 MEQ/L (136-145) 127 MEQ/L (136-145) 132 MEQ/L (136-145) Protein Corrected Calcium 7.9 MG/DL (8.5-10.1) Blood Urea Nitrogen 4 MG/DL (7-18) Aspartate Amino Transf (AST/SGOT) 12 U/L (15-37) Test 01/10/17 05:13 Imaging Last Impressions Head CT 01/07/17 0600 Signed Impressions: Service Date/Time: December 04:08 - CONCLUSION: 1. Patchy parenchymal hemorrhage as above, slightly increased in size were more conspicuous on the right but there remains no midline shift. 2. Basilar predominant subarachnoid blood is not significantly changed. Aamury Gramajo MD Chest X-Ray 01/06/17 0000 Signed Impressions: Service Date/Time: Friday, January 06, 2017 22:06 - CONCLUSION: The lungs are clear. No infiltrates seen. Boyd Lopez MD Cervical Spine CT 01/06/17 0000 Signed Impressions: Service Date/Time: Friday, January 06, 2017 20:46 - CONCLUSION: 1. No evidence of compression deformity or spondylolisthesis. 2. Multilevel discogenic degenerative changes with prominent disc osteophyte complex indenting on the thecal sac at C5-6 and possible left sided protrusion at C3-4 Boyd Lopez MD PE at Discharge GENERAL: Well-developed, and nourished, in no distress SKIN: Focused skin assessment warm and dry. HEAD: Atraumatic. Normocephalic. EYES: Pupils equal and round. No scleral icterus. No injection or drainage. ENT: No nasal bleeding or discharge. NECK: Trachea midline. CARDIOVASCULAR: Regular rate and rhythm. No murmur appreciated. RESPIRATORY: No accessory muscle use. No respiratory distress. Clear to auscultation. Breath sounds equal bilaterally. GASTROINTESTINAL: Abdomen soft, non-tender, nondistended, and no guarding. Hepatic and splenic margins not palpable. No pulsatile mass. MUSCULOSKELETAL: No obvious deformities. No clubbing. No cyanosis. No edema. Full range of motion. NEUROLOGICAL: Awake alert complaints of headache. No obvious cranial nerve deficits. Motor grossly within normal limits. Hospital Course Critical Care Notes: Middle-aged male brought in by EMS after witnessed fall at [facility]. Patient was reportedly drinking alcohol when he was seen falling backwards hitting his head on the pavement. He appeared to be intoxicated heavily and on arrival in the ER underwent imaging studies including a head CT which revealed subarachnoid hemorrhage. Neurosurgery was contacted by ER physician and requested admission by critical care medicine service with neurosurgery consult. Patient was accepted for admission by critical care medicine and I evaluated the patient while he was in the ER. At that time he was stuporous/ encephalopathic arousing to painful stimuli. His labs were pending at the time of my evaluation. History was obtained by reviewing records and discussion with Dr. Valentin. 01/07: Lying in bed complaints of headache otherwise awake alert. CT of the head shows stable subarachnoid hemorrhage but more prominent intraparenchymal hemorrhage on the right frontoparietal and temporal regions largest measuring frontal 2.6 cm. Na 133. I have increased NS to 150 ml per hour 01/08: Still complaining of headache Percocet is not helping. Will give single dose of Dilaudid 1 mg IV. Sodium 129 started on 2% saline. Repeat sodium in the afternoon 01/09: Patient is neurologically stable. Sodium is 132. We'll change to by mouth sodium tablets. Keppra change to by mouth. Tolerating by mouth diet Hospitalist Notes: 01/10: Transferred to Hospitalist starting Today, I came to the patients room due to that nurse tells me the patient wants to sign Against Medical Advise, was discussed the risks of his Behavior patient is alert and oriented, but states he has to take care of other people and needs to go now, He is not been cleared yet by Neurosurgery, he accept the risk that may include , and signed AMA. Assessment and Plan TBI with traumatic subarachnoid hemorrhage, right frontal temporal parietal IPH Encephalopathy Alcohol intoxication Hyponatremia Headache Plan: Neuro: Follow neuro status. Neurosurgery - Dr. Beck. Repeat head CT 01/07 stable subarachnoid hemorrhage, more prominent right-sided intraparenchymal hemorrhages. For the repeat CT scans per neurosurgery Keppra 500 mg IV every 12 hourly for seizure prophylaxis- change to PO Percocet PRN for Pain. Dilaudid IV for breakthrough pain EtOH 302 on admission. CIWA protocol. Supplement Thiamine. Keep Na >140, DC 2% , continue NS, added NaCL tablets Cardiovascular: IV hydration, watch for hypotension. NS 100 ml per hour. Pulmonary: Supplemental O2 as needed. Protecting airway currently. Aggressive pulmonary toilet GI/liver: Regular diet Renal/: IV hydration, strict intake output, monitor and replete electro lites, follow BUN/creatinine. ID: No antibiotics at this time. Heme: Follow CBC and coags Endocrine: SSI for glycemic control if needed Prophylaxis: Pepcid/SCDs. No heparin or Lovenox in view of subarachnoid hemorrhage. increase activity Further recommendations per neurosurgery. Patient Decided to sign against medical advise and left the hospital, discussed with him and nurse Joana in the room. Discharge Planning Signed against medical advise. Pt Condition on Discharge: Stable Discharge Disposition: Discharge Home Discharge Time: <= 30 minutes Lowell Walker MD Jan 10, 2017 09:01
== END 2017-01-10 08:41 | disposition left against medical advice (07) | DRG 82 ==
LOC: NEPD 20:13 → EDBD 21:49 → NEDA 21:49 → N03A 23:00 → N05B 01-09 15:51
PROVIDERS: ADMIT Internal Medicine; ATTEND Internal Medicine
DX: S06.6X9A Traumatic subarachnoid hemorrhage with loss of consciousness of unspecified duration, initial encounter (principal); G93.40 Encephalopathy, unspecified; E87.1 Hypo-osmolality and hyponatremia; F10.129 Alcohol abuse with intoxication, unspecified; W22.8XXA Striking against or struck by other objects, initial encounter; Y92.512 Supermarket, store or market as the place of occurrence of the external cause; Z72.0 Tobacco use; Y90.8 Blood alcohol level of 240 mg/100 ml or more
CPT/HCPCS: 70450; 71010; 72125; 80048; 80053; 80307; 83735; 84100; 84295; 85025; 85610; 85730; 87641; 94150; 96374; J1170; J1953; J3411; J3480; J7030; J7040

== ENCOUNTER 2017-01-10 14:36 | Emergency (ER) | payer SELFPAY ==
[~2017-01-10] VITALS: Ht 175.3 cm; Wt 77.4 kg
[2017-01-10 14:45] VITALS: BP 99/57; PULSE 65; RESP 16; TEMP 97.8; O2SAT 92
[2017-01-10] MEDS ORDERED: SODIUM CHLOR 0.9% 1000 ML INJ 1,000 ML IV SCH (15:01)
[2017-01-10 15:03] VITALS: BP 105/72; PULSE 69; RESP 19; O2SAT 95
--- NOTE | 2017-01-10 15:09 | PD ---
HPI Chief Complaint: Alcohol/Drug Intoxication Time Seen by Provider: 14:57 Travel History International Travel<30 days: No Contact w/Intl Traveler<30days: No Traveled to known affect area: No History of Present Illness HPI 51-year-old male brought in by EMS status post being found passed out intoxicated with alcohol. Patient has significant history of recent fall with subarachnoid hemorrhage on 06 January. She has been nostril until earlier this morning where he signed out AMA after being cleared by neurosurgery. Patient is intoxicated but arousable. He does complain of headache. He cannot quantify it. He also states he is nauseous. He is unreliable historian. He has no known drug allergies. [facility] Past Medical History Depression: Yes Neurologic: No Social History Alcohol Use: Yes Tobacco Use: Yes Substance Use: Yes Allergies-Medications (Allergen,Severity, Reaction): Coded Allergies: No Known Allergies (Unverified , 01/10/17) Reported Meds & Prescriptions Reported Meds & Active Scripts Active Active Prescriptions or Reported Medications Unobtainable Review of Systems ROS Limitations: Intoxication, Poor Historian General / Constitutional: No: Fever Eyes: No: Visual changes HENT: No: Headaches Cardiovascular: No: Chest Pain or Discomfort Respiratory: No: Shortness of Breath Gastrointestinal: No: Abdominal Pain Genitourinary: No: Dysuria Musculoskeletal: No: Pain Skin: No Rash Neurologic: No: Weakness Psychiatric: No: Depression Endocrine: No: Polydipsia Hematologic/Lymphatic: No: Easy Bruising Physical Exam Exam Limitations: Intoxication Narrative GENERAL: Patient is arousable and answers questions appropriately but is obviously intoxicated. SKIN: Warm and dry. Normal color. Normal turgor. No obvious signs of trauma. HEAD: Normocephalic. No acute signs of trauma. EYES: Pupils equal and round. No scleral icterus. No injection or drainage. Ocular motions are normal. ENT: No nasal bleeding or discharge. Mucous membranes pink and moist. No acute dental injury. Pharynx is clear. Airway is patent. NECK: Trachea midline. Supple nontender. CARDIOVASCULAR: Regular rate and rhythm. No murmurs gallops or rubs. RESPIRATORY: No accessory muscle use. Clear to auscultation. Breath sounds equal bilaterally. MUSCULOSKELETAL: Extremities without clubbing, cyanosis, or edema. No obvious deformities. NEUROLOGICAL: Intoxicated but arousable and answering questions appropriately. No obvious cranial nerve deficits. Motor grossly within normal limits. Five out of 5 muscle strength in the arms and legs. Slurred speech. PSYCHIATRIC: Intoxicated. Data Data Last Documented VS Vital Signs Date Time Temp Pulse Resp B/P (MAP) Pulse Ox O2 Delivery O2 Flow Rate FiO2 01/10/17 15:18 95 Room Air 01/10/17 15:03 69 19 01/10/17 14:45 97.8 Orders Orders Complete Blood Count With Diff (01/10/17 15:) Comprehensive Metabolic Panel (01/10/17 15:) Prothrombin Time / Inr (Pt) (01/10/17 15:01) Act Partial Throm Time (Ptt) (01/10/17 15:01) Chest, Single Ap (01/10/17 15:) Ct Brain W/O Iv Contrast(Rout) (01/10/17 15:01) Blood Glucose (01/10/17 15:01) Ecg Monitoring (01/10/17 15:) Iv Access Insert/Monitor (01/10/17 15:) Oximetry (01/10/17 15:01) Sodium Chloride 0.9% Flush (Ns Flush) (01/10/17 15:15) Sodium Chlor 0.9% 1000 Ml Inj (Ns 1000 M (01/10/17 15:01) Thiamine Inj (Thiamine Inj) (01/10/17 15:15) Lorazepam Inj (Ativan Inj) (01/10/17 15:15) Alcohol (Ethanol) (01/10/17 15:01) Lorazepam Inj (Ativan Inj) (01/10/17 17:00) Labs Laboratory Tests Test 01/10/17 15:15 White Blood Count 10.9 TH/MM3 Red Blood Count 4.21 MIL/MM3 Hemoglobin 13.5 GM/DL Hematocrit 38.8 % Mean Corpuscular Volume 92.1 FL Mean Corpuscular Hemoglobin 32.1 PG Mean Corpuscular Hemoglobin Concent 34.9 % Red Cell Distribution Width 13.3 % Platelet Count 241 TH/MM3 Mean Platelet Volume 8.0 FL Neutrophils (%) (Auto) 71.8 % Lymphocytes (%) (Auto) 20.2 % Monocytes (%) (Auto) 5.7 % Eosinophils (%) (Auto) 1.5 % Basophils (%) (Auto) 0.8 % Neutrophils # (Auto) 7.8 TH/MM3 Lymphocytes # (Auto) 2.2 TH/MM3 Monocytes # (Auto) 0.6 TH/MM3 Eosinophils # (Auto) 0.2 TH/MM3 Basophils # (Auto) 0.1 TH/MM3 CBC Comment DIFF FINAL Differential Comment Prothrombin Time 10.0 SEC Prothromb Time International Ratio 0.9 RATIO Activated Partial Thromboplast Time 25.5 SEC Blood Urea Nitrogen 5 MG/DL Creatinine 0.57 MG/DL Random Glucose 86 MG/DL Total Protein 6.5 GM/DL Albumin 3.4 GM/DL Calcium Level 7.9 MG/DL Alkaline Phosphatase 74 U/L Aspartate Amino Transf (AST/SGOT) 17 U/L Alanine Aminotransferase (ALT/SGPT) 28 U/L Total Bilirubin 0.1 MG/DL Sodium Level 132 MEQ/L Potassium Level 3.5 MEQ/L Chloride Level 100 MEQ/L Carbon Dioxide Level 19.9 MEQ/L Anion Gap 12 MEQ/L Estimat Glomerular Filtration Rate 150 ML/MIN Ethyl Alcohol Level 252 MG/DL [facility] Medical Decision Making Medical Screen Exam Complete: Yes Emergency Medical Condition: Yes Medical Record Reviewed: Yes Differential Diagnosis EtOH intoxication. History of subarachnoid hemorrhage. Altered mental status. Narrative Course Labs are ordered including CBC, CMP, serum alcohol level. IV access is obtained patient is given 100 mg thiamine IV as well as 1000 mg normal saline bolus. Patient is given [address] of the head is ordered without IV contrast. CBC is unremarkable. Coagulation studies are normal. Chemistry shows sodium 132, cataracts is 19.9, BUN is 5, creatinine is 0.57, calcium is 7.9, total bilirubin 0.1. Serum alcohol level is 252. Patient required a second dose of lorazepam 1 mg IV prior to CT. CT of the head shows no acute worsening contusion or acute bleed per radiologist. Patient is felt medically stable to be discharged once he is sober. Patient should abstain from alcohol. Recommend that he go to [facility] for alcoholic detox. Diagnosis Primary Impression: Alcohol intoxication Qualified Codes: F10.920 - Alcohol use, unspecified with intoxication, uncomplicated Referrals: [facility] Patient Instructions: Abuse of Alcohol (ED), General Instructions Additional Instructions: CT of the head shows no acute worsening contusion or acute bleed per radiologist. Patient is felt medically stable to be discharged once he is sober. Patient should abstain from alcohol. Recommend that he go to [facility] for alcoholic detox. Med/Other Pt SpecificInfo: No Meds Exist/No RX given Scripts Unable to Obtain Active Prescriptions or Reported Meds Disposition: 01 DISCHARGE HOME Condition: Stable Ki Roa Jan 10, 2017 15:09
[2017-01-10] MEDS ORDERED: SODIUM CHLORIDE 0.9% FLUSH 5 ML FLUSH IV FLUSH PRN (15:15)
[2017-01-10] MEDS ORDERED: LORazepam 2 MG/ML VIAL IV PUSH ONE ×2 (15:15→17:00)
[2017-01-10] MEDS ORDERED: THIAMINE INJ 100 MG in SODIUM CHLORIDE 0.9% INJ 100 ML IV ONE (15:15)
[2017-01-10 15:18] VITALS: O2SAT 95
--- NOTE | 2017-01-10 15:28 | RADRPT ---
EXAM DATE/TIME: 01/10/2017 15:17 [place] COMPARISON: CHEST SINGLE AP, January 06, 2017, 22:06. INDICATIONS : Short of breath, syncope, ETOH. MEDICAL HISTORY : None. SURGICAL HISTORY : None. ENCOUNTER: Initial ACUITY: 1 day PAIN SCORE: 0/10 LOCATION: Bilateral chest FINDINGS: There are patchy infiltrates in the left infrahilar region with some air bronchograms, but with prese rvation of the left hemidiaphragm. The right lung is clear. Old fractures of the posterolateral rig ht 4th through 8th ribs. No evidence of pneumothorax. CONCLUSION: Patchy non-consolidative infiltrates in the left infrahilar region. Boyd Lopez MD on January 10, 2017 at 15:25 Board Certified Radiologist. This report was verified electronically.
[2017-01-10 15:32] LABS: AUTOMATED NEUTROPHIL # 7.8 TH/MM3 (1.8-7.7); BASOPHIL # 0.1 TH/MM3 (0-0.2); BASOPHIL % 0.8 % (0.0-2.0); EOSINOPHIL # 0.2 TH/MM3 (0-0.4); EOSINOPHIL % 1.5 % (0.0-4.0); HEMATOCRIT 38.8 % (39.0-51.0); HEMO FLAGS DIFF FINAL; LYMPH % 20.2 % (9.0-44.0); LYMPHOCYTE # 2.2 TH/MM3 (1.0-4.8); MEAN CELL VOLUME 92.1 FL (80.0-100.0); MEAN CORPUSCULAR HEMOGLOBIN 32.1 PG (27.0-34.0); MEAN CORPUSCULAR HGB CONC 34.9 % (32.0-36.0); MONO % 5.7 % (0.0-8.0); NEUT % 71.8 % (16.0-70.0); PLATELET COUNT 241 TH/MM3 (150-450); RED BLOOD COUNT 4.21 MIL/MM3 (4.50-5.90); RED CELL DISTRIBUTION WIDTH 13.3 % (11.6-17.2); WHITE BLOOD COUNT 10.9 TH/MM3 (4.0-11.0)
[2017-01-10 15:49] LABS: APTT (PATIENT) 25.5 SEC (24.3-30.1); INTERNATIONAL NORMALIZED RATIO 0.9 RATIO
[2017-01-10 15:54] LABS: ALT (GPT) 28 U/L (12-78); ANION GAP 12 MEQ/L (5-15); AST (GOT) 17 U/L (15-37); BICARBONATE 19.9 MEQ/L (21.0-32.0); BLOOD UREA NITROGEN 5 MG/DL (7-18); CHLORIDE 100 MEQ/L (98-107); GLOMERULAR FILTRATION RATE 150 ML/MIN (>89); POTASSIUM 3.5 MEQ/L (3.5-5.1); SODIUM (NA) 132 MEQ/L (136-145)
[2017-01-10 15:55] LABS: ALCOHOL 252 MG/DL (0-5)
[2017-01-10 15:57] LABS: ALKALINE PHOSPHATASE 74 U/L (45-117); TOTAL BILIRUBIN ADULT 0.1 MG/DL (0.2-1.0)
--- NOTE | 2017-01-10 16:05 | PD ---
Physical Exam Date Seen by Provider: Jan 10, 2017 Narrative Patient is brought to us because of alcohol intoxication. Data Data Last Documented VS Vital Signs Date Time Temp Pulse Resp B/P (MAP) Pulse Ox O2 Delivery O2 Flow Rate FiO2 01/10/17 15:18 95 Room Air 01/10/17 15:03 69 19 01/10/17 14:45 97.8 Orders Orders Complete Blood Count With Diff (01/10/17 15:01) Comprehensive Metabolic Panel (01/10/17 15:01) Prothrombin Time / Inr (Pt) (01/10/17 15:01) Act Partial Throm Time (Ptt) (01/10/17 15:01) Chest, Single Ap (01/10/17 15:01) Ct Brain W/O Iv Contrast(Rout) (01/10/17 15:01) Blood Glucose (01/10/17 15:01) Ecg Monitoring (01/10/17 15:01) Iv Access Insert/Monitor (01/10/17 15:) Oximetry (01/10/17 15:01) Sodium Chloride 0.9% Flush (Ns Flush) (01/10/17 15:15) Sodium Chlor 0.9% 1000 Ml Inj (Ns 1000 M (01/10/17 15:01) Thiamine Inj (Thiamine Inj) (01/10/17 15:15) Lorazepam Inj (Ativan Inj) (01/10/17 15:15) Alcohol (Ethanol) (01/10/17 15:01) Labs Laboratory Tests Test 01/10/17 15:15 White Blood Count 10.9 TH/MM3 Red Blood Count 4.21 MIL/MM3 Hemoglobin 13.5 GM/DL Hematocrit 38.8 % Mean Corpuscular Volume 92.1 FL Mean Corpuscular Hemoglobin 32.1 PG Mean Corpuscular Hemoglobin Concent 34.9 % Red Cell Distribution Width 13.3 % Platelet Count 241 TH/MM3 Mean Platelet Volume 8.0 FL Neutrophils (%) (Auto) 71.8 % Lymphocytes (%) (Auto) 20.2 % Monocytes (%) (Auto) 5.7 % Eosinophils (%) (Auto) 1.5 % Basophils (%) (Auto) 0.8 % Neutrophils # (Auto) 7.8 TH/MM3 Lymphocytes # (Auto) 2.2 TH/MM3 Monocytes # (Auto) 0.6 TH/MM3 Eosinophils # (Auto) 0.2 TH/MM3 Basophils # (Auto) 0.1 TH/MM3 CBC Comment DIFF FINAL Differential Comment Prothrombin Time 10.0 SEC Prothromb Time International Ratio 0.9 RATIO Activated Partial Thromboplast Time 25.5 SEC Blood Urea Nitrogen 5 MG/DL Creatinine 0.57 MG/DL Random Glucose 86 MG/DL Total Protein 6.5 GM/DL Albumin 3.4 GM/DL Calcium Level 7.9 MG/DL Alkaline Phosphatase 74 U/L Aspartate Amino Transf (AST/SGOT) 17 U/L Alanine Aminotransferase (ALT/SGPT) 28 U/L Total Bilirubin 0.1 MG/DL Sodium Level 132 MEQ/L Potassium Level 3.5 MEQ/L Chloride Level 100 MEQ/L Carbon Dioxide Level 19.9 MEQ/L Anion Gap 12 MEQ/L Estimat Glomerular Filtration Rate 150 ML/MIN Ethyl Alcohol Level 252 MG/DL MDM Supervised Visit with NEMESIO: Yes Narrative Course I, Dr. Ross, have reviewed the advance practice practitioner's documentation and am in agreement, met with the patient face to face, made the diagnosis, and the medical decision making was done by me. *My assessment and Findings: Patient is able to tell me his name and where he is. He states that he drinks as much as he can drink. He has no complaints. Please see Lencho Roa PA-C's note for results of laboratory and radiographic evaluation, ED course, final diagnosis and disposition Scripts Unable to Obtain Active Prescriptions or Reported Meds Condition: Pat Bonds MD Jan 10, 2017 16:05
--- NOTE | 2017-01-10 17:09 | RADRPT ---
EXAM DATE/TIME: 01/10/2017 15:31 [facility] COMPARISON: No previous studies available for comparison. INDICATIONS : Altered mental status. RADIATION DOSE: 38.84 CTDIvol (mGy) MEDICAL HISTORY : None SURGICAL HISTORY : None. ENCOUNTER: Initial ACUITY: 1 day PAIN SCALE: Non-responsive LOCATION: Bilateral head TECHNIQUE: Multiple contiguous axial images were obtained of the head. Using automated exposure control and adj ustment of the mA and/or kV according to patient size, radiation dose was kept as low as reasonably a chievable to obtain optimal diagnostic quality images. DICOM format image data is available electro nically for review and comparison. FINDINGS: Compare January 07. Hemorrhagic contusions on the right side involving portions of the right tempora l lobe and also the frontoparietal region are stable to slightly decreased since prior study. No new intracranial hemorrhage. No measurable midline shift. No hydrocephalus. No acute bony abnormality. CONCLUSION: 1. Stable to slight improvement of hemorrhagic contusions on the right side as above. No new hemorrha ge. Dino Sanchez MD on January 10, 2017 at 17:05 Board Certified Radiologist. This report was verified electronically.
[2017-01-10 18:00] VITALS: BP 129/74; PULSE 74; RESP 15; O2SAT 97
[2017-01-11 02:41] VITALS: BP 164/73; PULSE 64; RESP 18; O2SAT 98
== END 2017-01-11 06:05 | disposition home or self-care (01) ==
LOC: NEDAMB 14:36 → NEPD 01-11 06:05
DX: F10.129 Alcohol abuse with intoxication, unspecified (principal); R51 Headache; R06.02 Shortness of breath; Y90.8 Blood alcohol level of 240 mg/100 ml or more; Z72.0 Tobacco use
CPT/HCPCS: 70450; 71010; 80053; 80307; 85025; 85610; 85730; 96365; 96375; 96376; 99285; J2060; J3411; J7030